=== PATIENT | male | born 1985 | race Caucasian/White ===

== ENCOUNTER 2019-01-12 11:17 | Emergency (ER) | payer OTHER ==
[2019-01-12 12:43] LABS: Absolute Lymphocytes (CBC) 1.7 K/uL (0.7-4.9); Basophils % 0.2 % (0-1.3); Eosinophils % 0.3 % (0-4.4); Lymphocytes % 16.5 % (15.3-44.8); MPV 7.6 fL (7.6-11.3); Monocytes % 9.2 % (3.3-12.3); RBC Red Blood Cell Count 5.45 M/uL (4.33-5.43)
[2019-01-12 12:50] LABS: Protime INR 1.08
[2019-01-12 12:57] LABS: ALT/SGPT 25 U/L (12-78); AST/SGOT 18 U/L (15-37); Albumin 4.6 g/dL (3.4-5.0); Alkaline Phosphatase 92 U/L (45-117); BUN Blood Urea Nitrogen 14 mg/dL (7-18); Bicarbonate 22 mmol/L (21-32); Bilirubin Direct 0.3 mg/dL (0-0.2); Glucose Level 95 mg/dL (74-106); Potassium 3.3 mmol/L (3.5-5.1); Protein, Total 7.7 g/dL (6.4-8.2); Sodium Level 141 mmol/L (136-145)
--- NOTE | 2019-01-12 15:05 | EDPHYS ---
Physician Documentation [facility] Name: Gerardo Barragan Age: 33 yrs Sex: Male : 1985 Arrival Date: 01/12/2019 Time: 11:22 Bed 16 Private MD: ED Physician Lisandro Regan HPI: 01/12 12:28 This 33 yrs old Male presents to ER via Ambulatory with complaints of off pm1 medication. 12:28 The patient presents to the emergency department with Hallucinations. Onset: The pm1 symptoms/episode began/occurred 3 day(s) ago. Past psychiatric history: Prior diagnosis: bipolar disorder, Psychiatric medications include: Cogentin, risperodol, vistaril, Primary psychiatric physician: Dr. Omar Leone. Associated signs and symptoms: Pertinent positives; hallucinations, Pertinent negatives: homicidal ideation, suicide ideation. Severity of symptoms: in the emergency department the symptoms are worse. The patient has experienced similar episodes in the past, multiple times. Patient with insurance coverage issues for Risperdal injection. Currently being seen by Omar Leone who are working with his family to get coverage for Risperdal injections that work for him. Patient has not been compliant with his medications by mouth for the past 3 days. Historical: - Allergies: 12:02 Haldol; iw - Home Meds: 12:02 Cogentin Oral 1 mg twice a day [Active]; Risperdal 2 mg Oral tab 1 tab 2 times per day iw [Active]; Vistaril 50 mg Oral cap 4 times per day [Active]; - PMHx: 12:02 Bipolar disorder; Anxiety; tremors; insomnia; iw - PSHx: 12:02 Tonsillectomy; right hand; iw - Immunization history:: Adult Immunizations not up to date. - Social history:: Smoking status: Patient uses tobacco products, smokes one pack cigarettes per day. - Ebola Screening: : Patient negative for fever greater than or equal to 101.5 degrees Fahrenheit, and additional compatible Ebola Virus Disease symptoms Patient denies exposure to infectious person Patient denies travel to an Ebola-affected area in the 21 days before illness onset No symptoms or risks identified at this time. ROS: 12:28 Constitutional: Negative for fever, chills, and weight loss, Eyes: Negative for injury, pm1 pain, redness, and discharge, ENT: Negative for injury, pain, and discharge, Neck: Negative for injury, pain, and swelling, Cardiovascular: Negative for chest pain, palpitations, and edema, Respiratory: Negative for shortness of breath, cough, wheezing, and pleuritic chest pain, Abdomen/GI: Negative for abdominal pain, nausea, vomiting, diarrhea, and constipation, Back: Negative for injury and pain, : Negative for injury, bleeding, discharge, and swelling, MS/Extremity: Negative for injury and deformity, Skin: Negative for injury, rash, and discoloration, Neuro: Negative for headache, weakness, numbness, tingling, and seizure. 12:28 Psych: Positive for auditory hallucinations, visual hallucinations, insomnia, Negative for homicidal ideation, suicide gesture, suicidal ideation. Exam: 12:28 Constitutional: This is a well developed, well nourished patient who is awake, alert, pm1 and in no acute distress. Head/Face: Normocephalic, atraumatic. Eyes: Pupils equal round and reactive to light, extra-ocular motions intact. Lids and lashes normal. Conjunctiva and sclera are non-icteric and not injected. Cornea within normal limits. Periorbital areas with no swelling, redness, or edema. ENT: Nares patent. No nasal discharge, no septal abnormalities noted. Tympanic membranes are normal and external auditory canals are clear. Oropharynx with no redness, swelling, or masses, exudates, or evidence of obstruction, uvula midline. Mucous membranes moist. Neck: Trachea midline, no thyromegaly or masses palpated, and no cervical lymphadenopathy. Supple, full range of motion without nuchal rigidity, or vertebral point tenderness. No Meningismus. Chest/axilla: Normal chest wall appearance and motion. Nontender with no deformity. No lesions are appreciated. Cardiovascular: Regular rate and rhythm with a normal S1 and S2. No gallops, murmurs, or rubs. Normal PMI, no JVD. No pulse deficits. Respiratory: Lungs have equal breath sounds bilaterally, clear to auscultation and percussion. No rales, rhonchi or wheezes noted. No increased work of breathing, no retractions or nasal flaring. Abdomen/GI: Soft, non-tender, with normal bowel sounds. No distension or tympany. No guarding or rebound. No evidence of tenderness throughout. Back: No spinal tenderness. No costovertebral tenderness. Full range of motion. Skin: Warm, dry with normal turgor. Normal color with no rashes, no lesions, and no evidence of cellulitis. MS/ Extremity: Pulses equal, no cyanosis. Neurovascular intact. Full, normal range of motion. 12:28 Neuro: Orientation: is normal, Motor: is normal, moves all fours, Sensation: is normal, no obvious gross deficits. 12:28 Psych: Behavior/mood is cooperative, Affect is calm, Oriented to person, place, time, Patient has no thoughts/intents to harm self or others. Vital Signs: 12:02 BP 146 / 91; Pulse 90; Resp 16; Temp 98.2; Pulse Ox 100% on R/A; Weight 72.57 kg; iw Height 6 ft. 2 in. (187.96 cm); Pain 0/10; 12:44 BP 133 / 101; Pulse 87; Resp 16; Pulse Ox 99% on R/A; Pain 0/10; ls4 13:51 BP 144 / 92; Pulse 72; Resp 14; Pulse Ox 99% on R/A; Pain 0/10; ls4 14:41 BP 126 / 87; Pulse 74; Resp 14; Pulse Ox 99% on R/A; ls4 12:02 Body Mass Index 20.54 (72.57 kg, 187.96 cm) iw MDM: 11:38 Patient medically screened. pm1 13:44 Data reviewed: vital signs. Data interpreted: Pulse oximetry: on room air is 99 %. pm1 Interpretation: normal. 13:44 ED course: [facility] contacted and they will call us back once they hear from [place] [id number] clinic. 14:26 ED course: Pending urine sample. pm1 15:01 ED course: Patient does not want to provide a urine sample. pm1 01/12 11:45 Order name: Acetaminophen; Complete Time: 13:42 pm1 01/12 11:45 Order name: Basic Metabolic Panel; Complete Time: 13:42 pm1 01/12 11:45 Order name: CBC with Diff; Complete Time: 13:42 pm1 01/12 11:45 Order name: ETOH Level; Complete Time: 13:42 pm1 01/12 11:45 Order name: Hepatic Function; Complete Time: 13:42 pm1 01/12 11:45 Order name: PT-INR pm1 01/12 11:45 Order name: Ptt, Activated pm1 01/12 11:45 Order name: Salicylate; Complete Time: 13:42 pm1 01/12 11:45 Order name: EKG; Complete Time: 12:18 pm1 01/12 11:45 Order name: EKG - Nurse/Tech; Complete Time: 12:17 pm1 01/12 11:45 Order name: IV Saline Lock; Complete Time: 12:02 pm1 01/12 11:45 Order name: Labs collected and sent; Complete Time: 12:02 pm1 EC:08 Rate is 81 beats/min. Rhythm is regular. No Q waves. T waves are Normal. No ST changes pm1 noted. Clinical impression: Normal ECG. Administered Medications: No medications were administered Disposition: 01/12/19 15:02 Discharged to Home. Impression: Patient's other noncompliance with medication regimen, Hallucinations, unspecified. - Condition is Stable. - Medication Reconciliation Form, Thank You Letter, Antibiotic Education, Prescription Opioid Use form. - Follow up: Emergency Department; When: As needed; Reason: Worsening of condition. Follow up: Private Physician; When: 2 - 3 days; Reason: Recheck today's complaints, Continuance of care, Re-evaluation by your physician. - Problem is new. - Symptoms have improved. Addendum: 01/17/2019 16:30 Co-signature as Attending Physician, Lisandro Regan MD I agree with the assessment and c esparza plan of care. Signatures: Dispatcher [employer] EDOH Lisandro Regan MD MD cha Williams, Irene, RN RN Douglas Pickard NP [employer] OFFICE SUPERVISOR pm1 Olivia Garcia, RN RN ls4 Corrections: (The following items were deleted from the chart) 01/12 15:06 15:02 01/12/2019 15:02 Discharged to Home. Impression: Patient's other noncompliance pm1 with medication regimen; Hallucinations, unspecified. Condition is Stable. Forms are Medication Reconciliation Form, Thank You Letter, Antibiotic Education, Prescription Opioid Use. Follow up: Emergency Department; When: As needed; Reason: Worsening of condition. Follow up: Private Physician; When: 2 - 3 days; Reason: Recheck today's complaints, Continuance of care, Re-evaluation by your physician. Problem is new. Symptoms have improved. pm1 15:09 15:06 01/12/2019 15:02 Discharged to Home. Impression: Patient's other noncompliance pm1 with medication regimen. Condition is Stable. Forms are Medication Reconciliation Form, Thank You Letter, Antibiotic Education, Prescription Opioid Use. Follow up: Emergency Department; When: As needed; Reason: Worsening of condition. Follow up: Private Physician; When: 2 - 3 days; Reason: Recheck today's complaints, Continuance of care, Re-evaluation by your physician. Problem is new. Symptoms have improved. pm1 17:16 11:45 Urine Dipstick-Ancillary ordered. pm1 ls4 17:21 15:09 01/12/2019 15:02 Discharged to Home. Impression: Patient's other noncompliance ls4 with medication regimen; Hallucinations, unspecified. Condition is Stable. Forms are Medication Reconciliation Form, Thank You Letter, Antibiotic Education, Prescription Opioid Use. Follow up: Emergency Department; When: As needed; Reason: Worsening of condition. Follow up: Private Physician; When: 2 - 3 days; Reason: Recheck today's complaints, Continuance of care, Re-evaluation by your physician. Problem is new. Symptoms have improved. pm1
--- NOTE | 2019-01-12 15:05 | ER ---
Nurse's Notes [facility] Name: Gerardo Barragan Age: 33 yrs Sex: Male : 1985 Arrival Date: 01/12/2019 Time: 11:22 Bed 16 Private MD: Diagnosis: Patient's other noncompliance with medication regimen;Hallucinations, unspecified Presentation: 01/12 11:57 Presenting complaint: Patient states: has not been taking psych meds for at least 3 to iw 7 days, normally takes Risperdal, Vistaril, Cogentin, hx of bipolar, anxiety, insomnia, is having auditory and visual hallucinations, denies suicidal or homicidal ideation. Transition of care: patient was not received from another setting of care. Onset of symptoms was January 12, 2019. Risk Assessment: Do you want to hurt yourself or someone else? Patient reports no desire to harm self or others. Initial Sepsis Screen: Does the patient meet any 2 criteria? No. Patient's initial sepsis screen is negative. Does the patient have a suspected source of infection? No. Patient's initial sepsis screen is negative. Care prior to arrival: None. 11:57 Method Of Arrival: Ambulatory iw 11:57 Acuity: SANTANA 3 iw Triage Assessment: 12:20 General: Appears in no apparent distress. Behavior is calm, cooperative. Pain: Denies ls4 pain. Historical: - Allergies: 12:02 Haldol; iw - Home Meds: 12:02 Cogentin Oral 1 mg twice a day [Active]; Risperdal 2 mg Oral tab 1 tab 2 times per day iw [Active]; Vistaril 50 mg Oral cap 4 times per day [Active]; - PMHx: 12:02 Bipolar disorder; Anxiety; tremors; insomnia; iw - PSHx: 12:02 Tonsillectomy; right hand; iw - Immunization history:: Adult Immunizations not up to date. - Social history:: Smoking status: Patient uses tobacco products, smokes one pack cigarettes per day. - Ebola Screening: : Patient negative for fever greater than or equal to 101.5 degrees Fahrenheit, and additional compatible Ebola Virus Disease symptoms Patient denies exposure to infectious person Patient denies travel to an Ebola-affected area in the 21 days before illness onset No symptoms or risks identified at this time. Screenin:19 Abuse screen: Denies threats or abuse. Denies injuries from another. Nutritional ls4 screening: No deficits noted. Tuberculosis screening: No symptoms or risk factors identified. Fall Risk None identified. Assessment: 11:45 Reassessment: pt has very rapid speech. pt thoughts change rapidly. General: Appears ls4 uncomfortable, slender, unkempt, Behavior is flat. Neuro: Level of Consciousness is awake, alert, obeys commands, Oriented to person, place, time, . Speech. Cardiovascular: No deficits noted. Respiratory: No deficits noted. 12:45 Reassessment: No changes from previously documented assessment. Patient and/or family ls4 updated on plan of care and expected duration. Pain level reassessed. Patient is alert, oriented x 3, equal unlabored respirations, skin warm/dry/pink. Pt family in room. 13:44 Reassessment: No changes from previously documented assessment. Patient and/or family ls4 updated on plan of care and expected duration. Pain level reassessed. Patient is alert, oriented x 3, equal unlabored respirations, skin warm/dry/pink. pt unable to give urine. pt given water. awaiting specimen. 14:44 Reassessment: No changes from previously documented assessment. Patient and/or family ls4 updated on plan of care and expected duration. Pain level reassessed. Patient is alert, oriented x 3, equal unlabored respirations, skin warm/dry/pink. 15:15 Reassessment: No changes from previously documented assessment. Patient and/or family ls4 updated on plan of care and expected duration. Pain level reassessed. Patient is alert, oriented x 3, equal unlabored respirations, skin warm/dry/pink. spoke to pt father on pats phone. father states he will pick patient up at front door. I asked that he come in for teaching. pt father stated he would. 15:40 Reassessment: Pt left the ED. father did not come in for discharge. ls4 Vital Signs: 12:02 BP 146 / 91; Pulse 90; Resp 16; Temp 98.2; Pulse Ox 100% on R/A; Weight 72.57 kg; iw Height 6 ft. 2 in. (187.96 cm); Pain 0/10; 12:44 BP 133 / 101; Pulse 87; Resp 16; Pulse Ox 99% on R/A; Pain 0/10; ls4 13:51 BP 144 / 92; Pulse 72; Resp 14; Pulse Ox 99% on R/A; Pain 0/10; ls4 14:41 BP 126 / 87; Pulse 74; Resp 14; Pulse Ox 99% on R/A; ls4 12:02 Body Mass Index 20.54 (72.57 kg, 187.96 cm) ED Course: 11:22 Patient arrived in ED. mr 11:37 Olivia Garcia RN is Primary Nurse. ls4 11:38 Douglas Hughes NP is PHCP. pm1 11:38 Lisandro Regan MD is Attending Physician. pm1 12:01 Triage completed. iw 12:02 Arm band placed on. iw 12:19 Patient has correct armband on for positive identification. Bed in low position. Call ls4 light in reach. Side rails up X 1. Adult w/ patient. Pulse ox on. NIBP on. Verbal reassurance given. 12:44 No provider procedures requiring assistance completed. ls4 17:15 IV discontinued, intact, bleeding controlled, No redness/swelling at site. Pressure ls4 dressing applied. Administered Medications: No medications were administered Outcome: 15:02 Discharge ordered by MD. pm1 17:14 Discharged to home ambulatory, with family. ls4 17:14 Condition: good 17:14 Discharge instructions given to patient, family, Instructed on discharge instructions, follow up and referral plans. medication usage, safety practices, Demonstrated understanding of instructions, follow-up care, medications. 17:21 Patient left the ED. ls4 Signatures: Minerva Garnett Laila Porter RN RN Douglas Hughes NP COLLAR BAND CREASER pm1 Olivia Garcia RN RN ls4
--- NOTE | 2019-01-12 16:42 | EKG ---
Test Date: 2019-01-12 Test Time: 12:07:29 Jai Alai Player: MARIAN MEASUREMENT RESULTS: Intervals: Rate: 81 AK: 128 QRSD: 88 QT: 378 QTc: 439 [place]: P: 85 AK: 128 QRS: 76 T: 79 INTERPRETIVE STATEMENTS: Normal sinus rhythm Normal ECG Compared to ECG 04/21/2010 16:07:26 No significant changes Electronically Signed On 01-12-19 16:41:40 CDT by Nilton Ngo
== END 2019-01-12 17:21 | disposition home or self-care (01) ==
LOC: ER 11:17
DX: Z91.14 Patient's other noncompliance with medication regimen (principal); F17.210 Nicotine dependence, cigarettes, uncomplicated; F31.9 Bipolar disorder, unspecified; F41.9 Anxiety disorder, unspecified; Z88.8 Allergy status to other drugs, medicaments and biological substances
CPT/HCPCS: 36415; 80048; 80076; 80320; 80329; 85025; 85610; 85730; 93005; 99283

== ENCOUNTER 2019-02-21 15:30 | Emergency (ER) | payer OTHER ==
--- NOTE | 2019-02-21 16:41 | ER ---
Nurse's Notes [facility] Name: Gerardo Barragan Age: 33 yrs Sex: Male : 1985 Arrival Date: 02/21/2019 Time: 15:31 Bed Waiting Private MD: Diagnosis: Presentation: 02/21 15:39 Presenting complaint: Presenting complaint: EMS states: "he came into our EMS station aa5 with a black case duck taped to his arm saying that it was for the president so we called the police and they cleared the case and said he only had a watch and an ipod". Pt states "I think my back is broken", pt noted to be wearing back brace. Pt being uncooperative in triage, pt states "I only talk to men and I think I have given you enough information already". Pt is A\\T\\O x 4 in triage, pt refusing to answer some questions in triage, pt states "I'll speak to the doctor". Pt states "I've been outside long enough and my dad is trying to kick me out of my own house". 15:39 Acuity: SANTANA 3 aa5 15:39 Transition of care: patient was not received from another setting of care. Onset of aa5 symptoms is unknown. Initial Sepsis Screen: Does the patient meet any 2 criteria? No. Patient's initial sepsis screen is negative. Does the patient have a suspected source of infection? No. Patient's initial sepsis screen is negative. Care prior to arrival: None. 15:39 Method Of Arrival: EMS: [facility] aa5 Historical: - Allergies: 15:39 Haldol; aa5 15:39 Benadryl; aa5 - PMHx: 15:39 Anxiety; Bipolar disorder; insomnia; tremors; aa5 - PSHx: 15:39 Tonsillectomy; right hand; aa5 - Ebola Screening: : No symptoms or risks identified at this time. Vital Signs: 15:40 BP 111 / 85; Pulse 94; Resp 18 S; Temp 98.1(O); Pulse Ox 98% on R/A; aa5 ED Course: 15:31 Patient arrived in ED. as 15:39 Arm band placed on. aa5 15:53 Triage completed. aa5 16:40 Pedro Stein MD is Attending Physician. aa5 Administered Medications: No medications were administered Outcome: 16:40 Patient left the ED. aa5 Signatures: Chaya Leiva Audri, RN RN aa5 Corrections: (The following items were deleted from the chart) 15:45 15:39 Presenting complaint: aa5 aa5 15:53 15:39 Presenting complaint: aa5 aa5 15:55 15:39 Presenting complaint: EMS states: "he came into our EMS station with a black case aa5 duck taped to his arm saying that it was for the president so we called the police and they cleared the case and said he only had a watch and an ipod". Pt states "I think my back is broken", pt noted to be wearing back brace. Pt being uncooperative in triage, pt states "I only talk to men and I think I have given you enough information already". Pt is A\\T\\O x 4 in triage, pt refusing to answer some questions in triage, pt states "I'll speak to the doctor". Presenting complaint: EMS states: "he came into our EMS station with a black case duck taped to his arm saying that it was for the president so we called the police and they cleared the case and said he only had a watch and an ipod". Pt states "I think my back is broken", pt noted to be wearing back brace. Pt being uncooperative in triage, pt states "I only talk to men and I think I have given you enough information already". Pt is A\\T\\O x 4 in triage, pt refusing to answer some questions in triage, pt states "I'll speak to the doctor". aa5
== END 2019-02-21 16:40 | disposition left against medical advice (07) ==
LOC: ER 15:30
DX: Z53.21 Procedure and treatment not carried out due to patient leaving prior to being seen by health care provider (principal)

== ENCOUNTER 2019-04-30 20:05 | Emergency (ER) | payer SELFPAY ==
--- NOTE | 2019-04-30 22:42 | EDPHYS ---
Physician Documentation [facility] Name: Gerardo Barragan Age: 34 yrs Sex: Male : 1985 Arrival Date: 04/30/2019 Time: 20:09 Bed 13 Private MD: Adin Steele R ED Physician Lisandro Regan HPI: 04/30 21:45 This 34 yrs old Male presents to ER via Ambulatory with complaints of Flu cp Symptoms. 21:45 The patient or guardian reports cough, that is intermittent, with productive sputum, cp that is purulent. Onset: The symptoms/episode began/occurred 3 week(s) ago, after receiving flu vaccination. Associated signs and symptoms: Pertinent negatives: chest pain, diarrhea, fever, vomiting. 21:45 Severity of symptoms: in the emergency department the symptoms are unchanged. cp Historical: - Allergies: 20:39 Haldol; ak1 20:39 Benadryl; ak1 - Home Meds: 20:39 Cogentin Oral 1 mg twice a day [Active]; Vistaril 50 mg Oral cap 4 times per day ak1 [Active]; Risperdal 2 mg Oral tab 1 tab 2 times per day [Active]; - PMHx: 20:39 Anxiety; Bipolar disorder; insomnia; tremors; ak1 - PSHx: 20:39 Tonsillectomy; right hand; ak1 - Immunization history:: Adult Immunizations Flu vaccine is up to date. - Social history:: Smoking status: Patient uses tobacco products, smokes one pack cigarettes per day. - Ebola Screening: : No symptoms or risks identified at this time. ROS: 21:50 Constitutional: Negative for body aches, chills, fever, poor PO intake. cp 21:50 Eyes: Negative for injury, pain, redness, and discharge. cp 21:50 ENT: Positive for sore throat, Negative for drainage from ear(s), ear pain, difficulty swallowing, difficulty handling secretions. 21:50 Cardiovascular: Negative for chest pain, palpitations. 21:50 Respiratory: Positive for cough, Negative for wheezing. 21:50 Abdomen/GI: Negative for abdominal pain, nausea, vomiting, and diarrhea. 21:50 Skin: Negative for rash. 21:50 Neuro: Negative for headache. 21:50 All other systems are negative. Exam: 22:00 Constitutional: The patient appears in no acute distress, alert, awake, cp non-diaphoretic, non-toxic, well developed, well nourished. 22:00 Head/Face: Normocephalic, atraumatic. cp 22:00 Eyes: Periorbital structures: appear normal, Conjunctiva: normal, no exudate, no injection, Sclera: no appreciated abnormality, Lids and lashes: appear normal, bilaterally. 22:00 ENT: External ear(s): are unremarkable, Ear canal(s): are normal, clear, TM's: bulging, is not appreciated, bilaterally, dullness, bilaterally, erythema, is not appreciated, bilaterally, Nose: is normal, Mouth: Lips: moist, Oral mucosa: moist, Posterior pharynx: Airway: no evidence of obstruction, patent, Tonsils: no enlargement, no exudate, swelling, is not appreciated, erythema, that is mild, exudate, is not appreciated. 22:00 Neck: ROM/movement: is normal, is supple, without pain, no range of motions limitations, no meningismus, no nuchal rigidity, Lymph nodes: no appreciated lymphadenopathy. 22:00 Chest/axilla: Inspection: normal, Palpation: is normal, no crepitus, no tenderness. 22:00 Cardiovascular: Rate: normal, Rhythm: regular, Edema: is not appreciated, JVD: is not appreciated. 22:00 Respiratory: the patient does not display signs of respiratory distress, Respirations: normal, no use of accessory muscles, no retractions, no splinting, no tachypnea, labored breathing, is not present, Breath sounds: bronchial sounds, that are mild, are heard diffusely, decreased breath sounds, are not appreciated, stridor, is not appreciated, + upper airway congestion. wheezing: is not appreciated. 22:00 Abdomen/GI: Inspection: abdomen appears normal, Palpation: abdomen is soft and non-tender, in all quadrants. 22:00 Skin: no rash present. Vital Signs: 20:39 BP 147 / 97; Pulse 88; Resp 22; Temp 98.6; Pulse Ox 97% on R/A; Weight 65.77 kg (R); ak1 Height 6 ft. 3 in. (190.50 cm) (R); Pain 9/10; 22:15 BP 131 / 82; Pulse 63; Resp 18; Pulse Ox 100% ; Pain 0/10; fu 23:03 BP 114 / 83; Pulse 57; Resp 18; Pulse Ox 100% ; Pain 0/10; fu 20:39 Body Mass Index 18.12 (65.77 kg, 190.50 cm) ak1 MDM: 21:39 Patient medically screened. cp 22:40 Data reviewed: vital signs, nurses notes, lab test result(s), radiologic studies, plain cp films. 22:40 Antibiotic administration: The patient is discharged and will get outpatient cp antibiotics, Zithromax. Test interpretation: by ED physician or midlevel provider: plain radiologic studies, chest xray negative for focal pneumonia. Counseling: I had a detailed discussion with the patient and/or guardian regarding: the historical points, exam findings, and any diagnostic results supporting the discharge/admit diagnosis, lab results, radiology results, to return to the emergency department if symptoms worsen or persist or if there are any questions or concerns that arise at home. ED course: Will treat with oral Zithromax due to length of symptoms for 3 weeks. 04/30 20:40 Order name: Flu ak1 04/30 21:40 Order name: Strep cp 04/30 21:40 Order name: XRAY Chest Pa And Lat (2 Views) cp 04/30 22:14 Order name: Throat Culture EDMS Administered Medications: No medications were administered Disposition: 04/30/19 22:41 Discharged to Home. Impression: Acute bronchitis. - Condition is Stable. - Discharge Instructions: Acute Bronchitis, Adult. - Prescriptions for Tessalon Perles 100 mg Oral Capsule - take 1 capsule by ORAL route every 8 hours As needed; 15 capsule. Zithromax Z- Jacob 250 mg Oral Tablet - take 1 tablet by ORAL route as directed for 5 days Day 1 - take two (2) tablets one time. Day 2, 3, 4 , 5 take one (1) tablet once daily.; 6 tablet. Albuterol Sulfate 90 mcg/actuation - inhale 1-2 puff by INHALATION route every 4-6 hours; 1 Inhaler. - Medication Reconciliation Form, Thank You Letter, Antibiotic Education, Prescription Opioid Use form. - Follow up: Private Physician; When: 2 - 3 days; Reason: Worsening of condition. - Problem is new. - Symptoms are unchanged. Addendum: 05/02/2019 06:36 Co-signature as Attending Physician, Lisandro Regan MD I agree with the assessment and c esparza plan of care. Signatures: Dispatcher [employer] EDLisandro Bar MD MD cha Krenek, Amber RN RN ak1 Lisandro Henning PA PA cp Umadhay, Felix, RN RN fu Corrections: (The following items were deleted from the chart) 04/30 23:12 22:41 04/30/2019 22:41 Discharged to Home. Impression: Acute bronchitis. Condition is fu Stable. Forms are Medication Reconciliation Form, Thank You Letter, Antibiotic Education, Prescription Opioid Use. Follow up: Private Physician; When: 2 - 3 days; Reason: Worsening of condition. Problem is new. Symptoms are unchanged. cp
--- NOTE | 2019-04-30 22:42 | ER ---
Nurse's Notes [facility] Name: Gerardo Barragan Age: 34 yrs Sex: Male : 1985 Arrival Date: 04/30/2019 Time: 20:09 Bed 13 Private MD: Adin Steele R Diagnosis: Acute bronchitis Presentation: 04/30 20:36 Presenting complaint: Patient states: generalized weakness, insomnia X24 hours. pt c/o ak1 SOB X36 hours. Transition of care: patient was not received from another setting of care. Onset of symptoms is unknown. Risk Assessment: Do you want to hurt yourself or someone else? Patient reports no desire to harm self or others. Initial Sepsis Screen: Does the patient meet any 2 criteria? No. Patient's initial sepsis screen is negative. Does the patient have a suspected source of infection? No. Patient's initial sepsis screen is negative. Note pt is not taking his psych medications "I am not rich and can't afford them". Care prior to arrival: None. 20:36 Method Of Arrival: Ambulatory ak1 20:36 Acuity: SANTANA 3 ak1 Triage Assessment: 20:39 General: Appears in no apparent distress. Behavior is calm, cooperative. ak1 Historical: - Allergies: 20:39 Haldol; ak1 20:39 Benadryl; ak1 - Home Meds: 20:39 Cogentin Oral 1 mg twice a day [Active]; Vistaril 50 mg Oral cap 4 times per day ak1 [Active]; Risperdal 2 mg Oral tab 1 tab 2 times per day [Active]; - PMHx: 20:39 Anxiety; Bipolar disorder; insomnia; tremors; ak1 - PSHx: 20:39 Tonsillectomy; right hand; ak1 - Immunization history:: Adult Immunizations Flu vaccine is up to date. - Social history:: Smoking status: Patient uses tobacco products, smokes one pack cigarettes per day. - Ebola Screening: : No symptoms or risks identified at this time. Screenin:39 Abuse screen: Denies threats or abuse. Denies injuries from another. Nutritional ak1 screening: No deficits noted. Tuberculosis screening: No symptoms or risk factors identified. Fall Risk None identified. Assessment: 21:03 General: Appears in no apparent distress. Behavior is calm, cooperative, appropriate wh for age. Pain: Denies pain. Neuro: Level of Consciousness is awake, alert, obeys commands, Oriented to person, place, time, situation, Appropriate for age. Cardiovascular: Heart tones S1 S2 Capillary refill < 3 seconds. Respiratory: Airway is patent Respiratory effort is even, unlabored, Respiratory pattern is regular, symmetrical, Breath sounds are clear bilaterally. GI: Abdomen is flat, non-distended. : No signs and/or symptoms were reported regarding the genitourinary system. EENT: No signs and/or symptoms were reported regarding the EENT system. Derm: Skin is intact, is healthy with good turgor, Skin is pink, warm \\T\\ dry. normal. Musculoskeletal: Circulation, motion, and sensation intact. 22:00 Reassessment: Patient appears in no apparent distress at this time. No changes from fu previously documented assessment. Patient and/or family updated on plan of care and expected duration. Pain level reassessed. Patient is alert, oriented x 3, equal unlabored respirations, skin warm/dry/pink. Patient denies pain at this time. 23:00 Reassessment: Patient appears in no apparent distress at this time. No changes from fu previously documented assessment. Patient and/or family updated on plan of care and expected duration. Pain level reassessed. Patient is alert, oriented x 3, equal unlabored respirations, skin warm/dry/pink. Patient denies pain at this time. Vital Signs: 20:39 BP 147 / 97; Pulse 88; Resp 22; Temp 98.6; Pulse Ox 97% on R/A; Weight 65.77 kg (R); ak1 Height 6 ft. 3 in. (190.50 cm) (R); Pain 9/10; 22:15 BP 131 / 82; Pulse 63; Resp 18; Pulse Ox 100% ; Pain 0/10; fu 23:03 BP 114 / 83; Pulse 57; Resp 18; Pulse Ox 100% ; Pain 0/10; fu 20:39 Body Mass Index 18.12 (65.77 kg, 190.50 cm) ak1 ED Course: 20:09 Patient arrived in ED. es 20:09 Adin Steele MD is Private Physician. es 20:38 Triage completed. ak1 20:39 Arm band placed on Patient placed in waiting room, Patient notified of wait time. ak1 20:39 Patient has correct armband on for positive identification. ak1 21:03 Ed Kulkarni is Primary Nurse. 21:36 Lisandro Henning PA is PHCP. cp 21:36 Lisandro Regan MD is Attending Physician. cp 22:09 XRAY Chest Pa And Lat (2 Views) In Process Unspecified. EDMS 23:00 No provider procedures requiring assistance completed. Patient did not have IV access fu during this emergency room visit. Administered Medications: No medications were administered Outcome: 22:41 Discharge ordered by . cp 23:11 Discharged to home ambulatory. fu 23:11 Condition: stable 23:11 Discharge instructions given to patient, Instructed on discharge instructions, Demonstrated understanding of instructions, Prescriptions given X 3. 23:12 Patient left the ED. fu Signatures: Dispatcher [employer] EDZelda Zapata Amber, RN RN ak1 Lisandro Henning PA PA cp Ed Kulkarni Eliot Escalante RN RN fu
[2019-04-30 23:16] VITALS: TEMP 98.6
[2019-04-30 23:17] VITALS: BP 131/82; O2SAT 100
--- NOTE | 2019-05-01 07:44 | RAD REPORT ---
EXAM DESCRIPTION: RAD - Chest Pa And Lat (2 Views) - 04/30/2019 10:10 pm CLINICAL HISTORY: COUGH COMPARISON: None. TECHNIQUE: PA and lateral views of the chest were obtained. FINDINGS: The lungs are clear. Interstitial pattern within normal limits. No mediastinal or hilar l ymphadenopathy suspected. Heart size is normal and central vasculature is within normal limits. No p leural effusion or pneumothorax seen. No acute bony finding noted. No aortic abnormality. IMPRESSION: No acute cardiopulmonary process.
== END 2019-04-30 23:12 | disposition home or self-care (01) ==
LOC: ER 20:05
DX: J20.9 Acute bronchitis, unspecified (principal); F31.9 Bipolar disorder, unspecified; F17.210 Nicotine dependence, cigarettes, uncomplicated; Z88.5 Allergy status to narcotic agent; Z88.8 Allergy status to other drugs, medicaments and biological substances
CPT/HCPCS: 71046; 87070; 87081; 87804; 99283

== ENCOUNTER 2020-01-18 09:46 | Emergency (ER) | payer OTHER ==
--- OUTSIDE RECORDS SUMMARY | 2020-01-18 09:51 | XMS REPORT | Continuity of Care Document ---
:[address] [facility] t Address [address] [place] [address] Care Team Providers Name Role Phone Donny PATEL Attending Clinician Rm, Surg Spec Procedure Attending Clinician Unavailable Problems Condition Condition Condition Status Onset Resolution Last Treating Co mments Source Name Details Category Date Date Treatment Clinician Date Schizophre Schizophre Problem Active [facility] ill[facility] adalgisa adalgisa 3- Family 00:00: Practic 00 e Allergies, Adverse Reactions, Alerts This patient has no known allergies or adverse reactions. Social History Smoking Status Start Date Stop Date Source Light Tobacco Smoker [facility] Practice Medications Ordered Filled Start Stop Current Ordering Indication Dosage Frequency Signature Comments Components Source Medication Medication Date Date Medication? Clinician (SIG) Name Name benztropine benztropine No 1 BID benztropin [facility] 1 mg tablet 1 mg tablet e 1 mg Family Take 1 Take 1 tablet Practic tablet tablet Take 1 e twice a day twice a day tablet by oral by oral twice a route with route with day by meals. meals. oral route with meals. hydroxyzine hydroxyzine No hydroxyzin [facility] HCl 1 tab a HCl 1 tab a e HCl 1 Family day three day three tab a day Practic times a day times a day three e times a day risperidone risperidone No 1 BID risperidon [facility] 2 mg 2 mg e 2 mg Family disintegrat disintegrat disintegra Practic ing tablet ing tablet ting e Place 1 Place [address] 1 twice a day twice a day tablet by by twice a translingua translingua day by l route l route translingu with meals. with meals. al route with meals. Immunizations Ordered Immunization Filled Immunization Date Status Commen ts Source Name Name influenza, influenza, 2019-04-10 Completed [facility] injectable, injectable, 00:00:00 Practice quadrivalent quadrivalent Vital Signs Vital Name Observation Time Observation Value Comments Source BP Diastolic 2019-09-11 00:00:00 80 mm[Hg] [place] Height 2019-09-11 00:00:00 74 [in_i] [place] BMI (Body Mass 2019-09-11 00:00:00 22.5 kg/m2 [facility] Family Index) Practice BP Systolic 2019-09-11 00:00:00 115 mm[Hg] [place] [place] Body Weight 2019-09-11 00:00:00 175 [lb_av] [place] [place] Procedures This patient has no known procedures. Plan of Care Planned Activity Planned Date Details Comments Source Instructions [place] [place] Encounters Start End Encounter Admission Attending Care Care Encounter Source Date/Time Date/Time Type Type Clinicians Facility Department ID 2019-09-11 2019-09-11 Katerin [facility] [place] - [id number] [facility] 00:00:00 00:00:00 [facility]any[facility] flor o, [employer]: Medical - Practi c [email or web address] [facility], [address] [address], [place] [address] , Ph. 2019-08-14 2019-09-06 Office Deena Hines [facility] [id number] 15:06:18 15:55:07 Visit Bryan, Shorty Surg Spec Procedure [place] 3 [id number] [place] [id number] Professio [phone] Results This patient has no known results.
--- NOTE | 2020-01-18 10:39 | RAD REPORT ---
EXAM DESCRIPTION: CT - Spine Lumbar Wo Con - 01/18/2020 10:28 am CLINICAL HISTORY: Radiculopathy. LOWER BACK PAIN COMPARISON: No comparisons TECHNIQUE: Axial noncontrast CT imaging of the lumbar spine was performed with coronal and sagittal re-formatted images. All CT scans are performed using dose optimization technique as appropriate and may include automated exposure control or mA/KV adjustment according to patient size. FINDINGS: No acute lumbar spine fracture seen. No aggressive marrow pattern or malalignment. Paraspinal tissues are normal in thickness. No paraspinal abscess or hematoma seen. Mild spondylosis is present lower lumbar levels with posterior disc bulges. No high-grade canal steno sis suspected. IMPRESSION: No acute lumbar spine abnormality. Mild lower lumbar spondylosis.
[2020-01-18] MEDS ORDERED: KETOROLAC 30 MG/ML INJ ONE (10:53)
[2020-01-18] MEDS ORDERED: HYDROCODONE/APAP 7.5/325 MG TAB ONE (10:53)
--- NOTE | 2020-01-18 11:18 | EDPHYS ---
Physician Documentation [facility] Name: Gerardo Barragan Age: 34 yrs Sex: Male : 1985 Arrival Date: 01/18/2020 Time: 09:48 Bed 20 Private MD: Adin Steele R ED Physician Pedro Stein HPI: 01/17 11:12 This 34 yrs old Male presents to ER via Ambulatory with complaints of Back kb Injury, Back Pain. 11:12 The patient presents with pain that is acute, with no known mechanism of injury. The kb symptoms are located in the low back. Onset: The symptoms/episode began/occurred this morning. The pain does not radiate. Associated signs and symptoms: Pertinent positives: tingling. The problem was sustained without known cause. Modifying factors: The patient symptoms are alleviated by nothing, the patient symptoms are aggravated by any movement. Severity of symptoms: At their worst the symptoms were moderate, in the emergency department the symptoms are unchanged. The patient has not experienced similar symptoms in the past. The patient has not recently seen a physician. Pt reports he woke up with pain to lower back that radiated down legs. Denies incontinence, urinary symptoms, difficulty walking, numbness. States he does feel a tingling to bilateral arms and legs. Denies injury or trauma. Historical: - Allergies: 10:13 Benadryl; ss 10:13 Haldol; ss - PMHx: 10:13 Anxiety; Bipolar disorder; insomnia; tremors; ss - PSHx: 10:13 Tonsillectomy; right hand; ss - Immunization history:: Adult Immunizations up to date. - Social history:: Smoking status: Patient denies any tobacco usage or history of. ROS: 11:11 Constitutional: Negative for fever, chills, and weight loss, Cardiovascular: Negative kb for chest pain, palpitations, and edema, Respiratory: Negative for shortness of breath, cough, wheezing, and pleuritic chest pain, Abdomen/GI: Negative for abdominal pain, nausea, vomiting, diarrhea, and constipation, : Negative for injury, bleeding, discharge, and swelling, MS/Extremity: Negative for injury and deformity, Skin: Negative for injury, rash, and discoloration, Neuro: Negative for headache, weakness, numbness, tingling, and seizure. 11:11 Back: Positive for pain at rest, pain with movement, radiated pain, of the lumbar area. Exam: 11:12 Constitutional: This is a well developed, well nourished patient who is awake, alert, kb and in no acute distress. Head/Face: Normocephalic, atraumatic. Chest/axilla: Normal chest wall appearance and motion. Nontender with no deformity. No lesions are appreciated. Cardiovascular: Regular rate and rhythm with a normal S1 and S2. No gallops, murmurs, or rubs. Normal PMI, no JVD. No pulse deficits. Respiratory: Lungs have equal breath sounds bilaterally, clear to auscultation and percussion. No rales, rhonchi or wheezes noted. No increased work of breathing, no retractions or nasal flaring. Abdomen/GI: Soft, non-tender, with normal bowel sounds. No distension or tympany. No guarding or rebound. No evidence of tenderness throughout. Back: No spinal tenderness. No costovertebral tenderness. Full range of motion. Skin: Warm, dry with normal turgor. Normal color with no rashes, no lesions, and no evidence of cellulitis. MS/ Extremity: Pulses equal, no cyanosis. Neurovascular intact. Full, normal range of motion. Neuro: Awake and alert, GCS 15, oriented to person, place, time, and situation. Cranial nerves II-XII grossly intact. Motor strength 5/5 in all extremities. Sensory grossly intact. Cerebellar exam normal. Normal gait. Vital Signs: 10:10 BP 131 / 99; Pulse 135; Resp 20; Temp 99.0(TE); Pulse Ox 99% on R/A; Weight 82.55 kg; ss Height 6 ft. 3 in. (190.50 cm); Pain 8/10; 10:18 Pulse 114; ca1 10:10 Body Mass Index 22.75 (82.55 kg, 190.50 cm) ss MDM: 10:00 Patient medically screened. kb 11:12 Data reviewed: vital signs, nurses notes. Data interpreted: Pulse oximetry: on room air kb is 99 %. Interpretation: normal. Counseling: I had a detailed discussion with the patient and/or guardian regarding: the historical points, exam findings, and any diagnostic results supporting the discharge/admit diagnosis, radiology results, the need for outpatient follow up, a family practitioner, to return to the emergency department if symptoms worsen or persist or if there are any questions or concerns that arise at home. 11:15 ED course: No tenderness upon palpation of back. Normal physical exam. . kb 01/17 10:07 Order name: CT Lumbar Spine Wo Silvestre; Complete Time: 10:41 kb Administered Medications: 10:47 Drug: [place] (7.5 mg-325 mg) 1 tabs {Note: rass 0.} Route: PO; ca1 10:48 Drug: TORadol 30 mg Route: IM; Site: right gluteus; ca1 Disposition: 15:35 Co-signature as Attending Physician, Pedro Stein MD I agree with the assessment and kdr plan of care. Disposition: 01/18/20 11:17 Discharged to Home. Impression: Low back pain. - Condition is Stable. - Discharge Instructions: Musculoskeletal Pain, Back Pain, Adult, [id number], Back Exercises, [id number]. - Prescriptions for Prednisone 20 mg Oral Tablet - take 1 tablet by ORAL route once daily for 5 days; 5 tablet. Cyclobenzaprine 10 mg Oral Tablet - take 1 tablet by ORAL route every 8 hours As needed; 21 tablet. - Medication Reconciliation Form, Thank You Letter, Antibiotic Education, Prescription Opioid Use form. - Follow up: Emergency Department; When: As needed; Reason: Worsening of condition. Follow up: Private Physician; When: 2 - 3 days; Reason: Recheck today's complaints, Continuance of care, Re-evaluation by your physician. Signatures: Dispatcher [employer] EDOH Breann Eduardo, MACHINE FEEDER FLOORPERSON-C MACHINE FEEDER FLOORPERSON-Pedro Terrell MD MD [facility] Najma Valverde RN RN ss Maryam Georges RN RN ca1 Corrections: (The following items were deleted from the chart) 11:31 11:17 01/18/2020 11:17 Discharged to Home. Impression: Low back pain. Condition is ss Stable. Forms are Medication Reconciliation Form, Thank You Letter, Antibiotic Education, Prescription Opioid Use. Follow up: Emergency Department; When: As needed; Reason: Worsening of condition. Follow up: Private Physician; When: 2 - 3 days; Reason: Recheck today's complaints, Continuance of care, Re-evaluation by your physician. kb
--- NOTE | 2020-01-18 11:18 | ER ---
Nurse's Notes [facility] Name: Gerardo Barragan Age: 34 yrs Sex: Male : 1985 Arrival Date: 01/18/2020 Time: 09:48 Bed 20 Private MD: Adin Steele R Diagnosis: Low back pain Presentation: 01/17 10:10 Chief complaint: Patient states: severe low back pain and bilateral leg pain with ss tingling to hands lower extremities. Began this morning when patient woke up. No injury. Coronavirus screen: Proceed with normal triage. Patient denies a cough. Patient denies shortness of breath or difficulty breathing. Patient denies measured and/or subjective temperature greater than 100.4F prior to today's visit. Patient denies travel on a cruise ship or to a country the [facility] currently lists as an affected area. Patient denies contact with known and/or suspected case of COVID-19. Ebola Screen: Patient denies exposure to infectious person. Patient denies travel to an Ebola-affected area in the 21 days before illness onset. Initial Sepsis Screen: Does the patient meet any 2 criteria? No. Patient's initial sepsis screen is negative. Does the patient have a suspected source of infection? No. Patient's initial sepsis screen is negative. Risk Assessment: Do you want to hurt yourself or someone else? Patient reports no desire to harm self or others. Onset of symptoms was January 18, 2020. 10:10 Method Of Arrival: Ambulatory ss 10:10 Acuity: SANTANA 2 ss Historical: - Allergies: 10:13 Benadryl; ss 10:13 Haldol; ss - PMHx: 10:13 Anxiety; Bipolar disorder; insomnia; tremors; ss - PSHx: 10:13 Tonsillectomy; right hand; ss - Immunization history:: Adult Immunizations up to date. - Social history:: Smoking status: Patient denies any tobacco usage or history of. Screenin:18 Abuse screen: Denies threats or abuse. Denies injuries from another. Nutritional ca1 screening: No deficits noted. Tuberculosis screening: No symptoms or risk factors identified. Fall Risk None identified. Assessment: 10:18 General: Appears in no apparent distress. comfortable, Behavior is cooperative, ca1 appropriate for age, anxious. Pain: Complains of pain in low back area Pain currently is 8 out of 10 on a pain scale. Neuro: Level of Consciousness is awake, alert, obeys commands, Oriented to person, place, time, situation. Cardiovascular: Heart tones S1 S2 present Capillary refill < 3 seconds Patient's skin is warm and dry. Rhythm is sinus tachycardia. Respiratory: Airway is patent Respiratory effort is even, unlabored, Respiratory pattern is regular, symmetrical, Breath sounds are clear bilaterally. GI: Abdomen is flat, non-distended, Bowel sounds present X 4 quads. Abd is soft and non tender X 4 quads. : No signs and/or symptoms were reported regarding the genitourinary system. EENT: No signs and/or symptoms were reported regarding the EENT system. Derm: Skin is intact, is healthy with good turgor, Skin is pink, warm \T\ dry. Musculoskeletal: Circulation, motion, and sensation intact. Capillary refill < 3 seconds. 10:48 Reassessment: Patient appears in no apparent distress at this time. Patient and/or ca1 family updated on plan of care and expected duration. Pain level reassessed. Patient is alert, oriented x 3, equal unlabored respirations, skin warm/dry/pink. General: Appears Behavior is calm, cooperative, appropriate for age. Vital Signs: 10:10 BP 131 / 99; Pulse 135; Resp 20; Temp 99.0(TE); Pulse Ox 99% on R/A; Weight 82.55 kg; ss Height 6 ft. 3 in. (190.50 cm); Pain 8/10; 10:18 Pulse 114; ca1 10:10 Body Mass Index 22.75 (82.55 kg, 190.50 cm) ED Course: 09:48 Patient arrived in ED. ag5 09:48 Adin Steele MD is Private Physician. ag5 09:53 Breann Eduardo FNP-C [facility]. kb 09:53 Pedro Stein MD is Attending Physician. kb 09:58 Maryam Georges RN is Primary Nurse. ca1 10:12 Triage completed. ss 10:13 Arm band placed on right wrist. ss 10:18 Patient has correct armband on for positive identification. Bed in low position. Call ca1 light in reach. Side rails up X 1. Pulse ox on. NIBP on. 10:27 CT Lumbar Spine Wo Con In Process Unspecified. EDMS 11:31 No provider procedures requiring assistance completed. Patient did not have IV access ss during this emergency room visit. Administered Medications: 10:47 Drug: [place] (7.5 mg-325 mg) 1 tabs {Note: rass 0.} Route: PO; ca1 10:48 Drug: TORadol 30 mg Route: IM; Site: right gluteus; ca1 Outcome: 11:17 Discharge ordered by . raj 11:31 Discharged to home ambulatory. ss 11:31 Condition: good 11:31 Discharge instructions given to patient, Instructed on discharge instructions, follow up and referral plans. medication usage, Demonstrated understanding of instructions, follow-up care, medications, Prescriptions given X 2. 11:31 Patient left the ED. ss Signatures: Dispatcher [employer] EDMS Breann Eduardo, JOVANNY PATRICIO-Najma Javier RN RN ss Maryam Georges RN RN ca1 Gisella Cho ag5 Corrections: (The following items were deleted from the chart) 10:15 10:10 BP 157 / 88; Pulse 80bpm; Resp 16bpm; Pulse Ox 96% RA; Temp 97.8F Temporal; 81.65 ss kg; Height 5 ft. 11 in.; BMI: 25.1; Pain 5/10; ss
[2020-01-18 11:46] VITALS: BP 131/99; TEMP 99; O2SAT 99
== END 2020-01-18 11:31 | disposition home or self-care (01) ==
LOC: ER 09:46
DX: M54.5 Low back pain (principal); Z88.8 Allergy status to other drugs, medicaments and biological substances
CPT/HCPCS: 72131; 96372; 99284

== ENCOUNTER 2021-05-24 01:52 | Emergency (ER) | payer OTHER ==
--- OUTSIDE RECORDS SUMMARY | 2021-05-24 01:55 | XMS REPORT | Continuity of Care Document ---
:1985 Author Organization [facility] t Address [address] [place] [address] Care Team Providers Name Role Phone Yudi_Jonathan_AH Attending Clinician Unavailable Donny PATEL Attending Clinician Rm, Surg Spec Procedure Attending Clinician Unavailable DONNY Attending Clinician Unavailable Enio BROWNLEE Attending Clinician Unavailable Enio BROWNLEE Attending Clinician Unavailable Yudi_Jonathan_AH Admitting Clinician Unavailable SUZY LAKHANI Admitting Clinician Unavailable Payers Payer Name Policy Type Policy Number Effective Date Expiration Date S ource [facility] [id number] 2019 [facility] 00:[facility]:00 (MEDICARE REPLACEMENT/ADVANT AGE - HMO) [facility] [id number] 2019 PLUS CLASSIC/VALUE 00:00:00 Problems Condition Condition Condition Status Onset Resolution Last Treating Co mments Source Name Details Category Date Date Treatment Clinician Date Schizophre Schizophre Problem Active V illage adalgisa adalgisa 3-04 Family 00:00: Practic 00 e Allergies, Adverse Reactions, Alerts Allergy Allergy Status Severity Reaction(s) Onset Inactive Treating Comm ents Source Name Type Date Date Clinician No Known DA Active U [facility] Drug 5-12 Allergie 00:00: s 00 NO KNOWN Drug Active [facility]ERGIE [facility] Social History Smoking Status Start Date Stop Date Source Light Tobacco Smoker [facility] Practice Medications Ordered Filled Start Stop Current Ordering Indication Dosage Frequency Signature Comments Components Source Medication Medication Date Date Medication? Clinician (SIG) Name Name benztropine benztropine No [address] [facility] 1 mg tablet 1 mg tablet e 1 mg Family Take 1 Take 1 tablet Practic tablet tablet Take 1 e twice a day twice a day tablet by oral by oral twice a route with route with day by meals. meals. oral route with meals. hydroxyzine hydroxyzine No hydroxyzin [facility] HCl 1 tab a HCl 1 tab a e HCl 1 Family day three day three tab a day Practic times a day times a day three e times a day risperidone risperidone No [address] [facility] 2 mg 2 mg e 2 mg [facility] disintegrat disintegrat disintegra Practic ing tablet ing tablet ting e Place 1 Place [address] 1 twice a day twice a day tablet by by twice a translingua translingua day by l route l route translingu with meals. with meals. al route with meals. Immunizations Ordered Immunization Filled Immunization Date Status Commen ts Source Name Name influenza, influenza, 2019-04-10 Completed [facility] injectable, injectable, 00:00:00 Practice quadrivalent quadrivalent Vital Signs Vital Name Observation Time Observation Value Comments Source BP Diastolic 2019-09-11 00:00:00 80 mm[Hg] [facility] Height 2019-09-11 00:00:00 74 [in_i] [facility] BMI (Body Mass 2019-09-11 00:00:00 22.5 kg/m2 [place] Index) Practice BP Systolic 2019-09-11 00:00:00 115 mm[Hg] [facility] Body Weight 2019-09-11 00:00:00 175 [lb_av] [facility] 02 Sat by Pulse 2020-11-19 17:22:44 99 /min Oximetry Body Mass Index 2020-11-19 17:22:44 20.0 Height 2020-11-19 17:22:44 190.5\S\75 Pulse Rate 2020-11-19 17:22:44 78 /min Respiratory Rate 2020-11-19 17:22:44 19 /min Temperature 2020-11-19 17:22:44 36.7\S\98.1 Weight 2020-11-19 17:22:44 04260.779\S\2560 Respiratory 2020-11-19 17:22:43 No respiratory distress /min Respiratory 2020-11-19 17:11:21 No respiratory distress /min 02 Sat by Pulse 2020-11-19 17:11:21 99 /min Oximetry Body Mass Index 2020-11-19 17:11:21 20.0 Height 2020-11-19 17:11:21 190.5\S\75 Pulse Rate 2020-11-19 17:11:21 78 /min Respiratory Rate 2020-11-19 17:11:21 19 /min Temperature 2020-11-19 17:11:21 36.7\S\98.1 Weight 2020-11-19 17:11:21 82939.779\S\2560 Respiratory 2020-11-19 16:06:27 No respiratory distress /min 02 Sat by Pulse 2020-11-19 16:06:27 99 /min Oximetry Body Mass Index 2020-11-19 16:06:27 20.0 Height 2020-11-19 16:06:27 190.5\S\75 Pulse Rate 2020-11-19 16:06:27 78 /min Respiratory Rate 2020-11-19 16:06:27 19 /min Temperature 2020-11-19 16:06:27 36.7\S\98.1 Weight 2020-11-19 16:06:27 69295.779\S\2560 Respiratory 2020-11-19 15:51:02 No respiratory distress /min 02 Sat by Pulse 2020-11-19 15:51:02 99 /min Oximetry Body Mass Index 2020-11-19 15:51:02 20.0 Height 2020-11-19 15:51:02 190.5\S\75 Pulse Rate 2020-11-19 15:51:02 78 /min Respiratory Rate 2020-11-19 15:51:02 19 /min Temperature 2020-11-19 15:51:02 36.7\S\98.1 Weight 2020-11-19 15:51:02 37949.779\S\2560 Respiratory 2020-11-19 15:50:32 No respiratory distress /min 02 Sat by Pulse 2020-11-19 15:50:32 99 /min Oximetry Body Mass Index 2020-11-19 15:50:32 20.0 Height 2020-11-19 15:50:32 190.5\S\75 Pulse Rate 2020-11-19 15:50:32 78 /min Respiratory Rate 2020-11-19 15:50:32 19 /min Temperature 2020-11-19 15:50:32 36.7\S\98.1 Weight 2020-11-19 15:50:32 85745.779\S\2560 Respiratory 2020-11-19 15:50:31 No respiratory distress /min 02 Sat by Pulse 2020-11-19 15:50:31 99 /min Oximetry Body Mass Index 2020-11-19 15:50:31 20.0 Height 2020-11-19 15:50:31 190.5\S\75 Pulse Rate 2020-11-19 15:50:31 78 /min Respiratory Rate 2020-11-19 15:50:31 19 /min Temperature 2020-11-19 15:50:31 36.7\S\98.1 Weight 2020-11-19 15:50:31 26733.779\S\2560 Respiratory 2020-11-19 15:49:59 No respiratory distress /min 02 Sat by Pulse 2020-11-19 15:49:59 99 /min Oximetry Body Mass Index 2020-11-19 15:49:59 20.0 Height 2020-11-19 15:49:59 190.5\S\75 Pulse Rate 2020-11-19 15:49:59 78 /min Respiratory Rate 2020-11-19 15:49:59 19 /min Temperature 2020-11-19 15:49:59 36.7\S\98.1 Weight 2020-11-19 15:49:59 09674.779\S\2560 Respiratory 2020-11-19 15:17:34 No respiratory distress /min 02 Sat by Pulse 2020-11-19 15:17:34 99 /min Oximetry Body Mass Index 2020-11-19 15:17:34 20.0 Height 2020-11-19 15:17:34 190.5\S\75 Pulse Rate 2020-11-19 15:17:34 78 /min Respiratory Rate 2020-11-19 15:17:34 19 /min Temperature 2020-11-19 15:17:34 36.7\S\98.1 Weight 2020-11-19 15:17:34 51283.779\S\2560 02 Sat by Pulse 2020-11-19 14:20:07 99 /min Oximetry Body Mass Index 2020-11-19 14:20:07 20.0 Height 2020-11-19 14:20:07 190.5\S\75 Pulse Rate 2020-11-19 14:20:07 78 /min Respiratory Rate 2020-11-19 14:20:07 19 /min Temperature 2020-11-19 14:20:07 36.7\S\98.1 Weight 2020-11-19 14:20:07 95125.779\S\2560 02 Sat by Pulse 2020-11-19 14:01:33 99 /min Oximetry Body Mass Index 2020-11-19 14:01:33 20.0 Height 2020-11-19 14:01:33 190.5\S\75 Pulse Rate 2020-11-19 14:01:33 78 /min Respiratory Rate 2020-11-19 14:01:33 19 /min Temperature 2020-11-19 14:01:33 36.7\S\98.1 Weight 2020-11-19 14:01:33 50428.779\S\2560 WEIGHT 2020-11-19 13:57:00 72.403031 kg HEIGHT 2020-11-19 13:57:00 190.5 cm Procedures This patient has no known procedures. Plan of Care Planned Activity Planned Date Details Comments Source Instructions [facility] Practice Encounters Start End Encounter Admission Attending Care Care Encounter Source Date/Time Date/Time Type Type Clinicians Facility Department ID 2021-05-23 Outpatient Stephany-Mbayo VFP VFP [id number] [facility] 01:17:54 _A_ [id number] Family Practic e 2021-05-23 Outpatient Stephany-Mbayo VFP VFP [id number] [facility] 01:04:41 _A_ [id number] Family Practic e 2021-05-22 Outpatient Stephany-Mbayo VFP VFP [id number] [facility] 23:46:28 _A_ [id number] Family Practic e 2021-05-22 Outpatient Stephany-Mbayo VFP VFP [id number] [place] 23:27:18 _A_AH [id number] Family Practic e 2021-05-22 Outpatient Stephany-Mbayo VFP VFP [id number] [place] 22:40:48 _A_AH [id number] Family Practic e 2021-05-22 Outpatient Stephany-Mbayo VFP VFP [id number] [place] 22:29:07 _A_AH [id number] Family Practic e 2021-05-22 Outpatient Stephany-Mbayo VFP VFP [id number] [place] 22:16:10 _A_AH 77021 Family Practic e 2021-05-22 Outpatient Stephany-Mbayo VFP VFP [id number] [place] 22:07:07 _A_AH [id number] Family Practic e 2021-05-22 Outpatient Stephany-Mbayo VFP VFP [id number] [place] 20:48:31 _A_AH [id number] Family Practic e 2021-05-22 Outpatient Stephany-Mbayo VFP VFP [id number] [place] 14:47:47 _A_AH [id number] Family Practic e 2021-05-19 2021-05-19 ambulatory [facility] [id number] [facility] 00[facility]00 [facility] 2020-03-10 2020-03-10 Outpatient R [facility] [id number] [facility] 14:40:00 14:40:00 [id number] [facility] 2020-03-10 2020-03-10 Outpatient R [facility] [id number] Univers 14:40:00 14:40:00 [facility] 2019-09-11 2019-09-11 Katerin VFP [place] - [id number] [facility] 00:00:00 00:00:00 [place] Fam flor molina ENLISTED ADVISOR: Medical - Practi merry [address] [email or web address] [email or web address], [address] [address], [place] [address] , Ph. 2019-08-14 2019-09-06 Office Madie Hines [facility] [id number] 15:06:18 15:55:07 Visit Rm, Adc Surg Spec Procedure [place] 3 [id number] [place] [id number] Professio [id number] 2019-08-14 2019-08-14 Outpatient R DONNY [facility] [id number] Univers 15:30:00 16:46:14 MADIE fernandez of [facility] 2007-07-28 2007-07-31 Inpatient X DIXIE BROWNLEE [facility] PSY [id number] Univers 17:47:00 13:10:00 DIXIE BROWNLEE 2 i ty [facility] Results This patient has no known results.
[2021-05-24] MEDS ORDERED: NA CHLORIDE 0.9% 1,000 ML ONE (02:21)
[2021-05-24 02:40] LABS: Absolute Lymphocytes (CBC) 3.2 K/uL (0.7-4.9); Basophils % 0.3 % (0-1.3); Hematocrit 50.7 % (39.6-49.0); MPV 7.5 fL (7.6-11.3); RBC Red Blood Cell Count 5.59 M/uL (4.33-5.43)
[2021-05-24 02:57] LABS: ALT/SGPT 56 U/L (12-78); AST/SGOT 20 U/L (15-37); Alkaline Phosphatase 75 U/L (45-117); BUN Blood Urea Nitrogen 12 mg/dL (7-18); Bicarbonate 28 mmol/L (21-32); Bilirubin Direct < 0.1 mg/dL (0-0.2); Bilirubin Total 0.4 mg/dL (0.2-1.0); Glucose Level 103 mg/dL (74-106); Lipase 129 U/L (73-393); Potassium 3.3 mmol/L (3.5-5.1); Protein, Total 7.4 g/dL (6.4-8.2); Sodium Level 142 mmol/L (136-145)
[2021-05-24] MEDS ORDERED: POTASSIUM CL SA 10 MEQ TAB PO ONE (03:24)
[2021-05-24 03:55] LABS: Urine Blood Negative (Negative); Urine Glucose Negative (Negative); Urine Protein Negative (Negative); Urine Specific Gravity 1.015 (1.005-1.030); Urine pH 6.5 (5.0-7.0)
--- NOTE | 2021-05-24 04:27 | EDPHYS ---
Physician Documentation [facility] Name: Gerardo Barragan Age: 36 yrs Sex: Male : 1985 Arrival Date: 05/24/2021 Time: 01:55 Bed 20 Private MD: ED Physician Stefan Bernard HPI: 05/24 02:16 This 36 yrs old Male presents to ER via Ambulatory with complaints of pkl Testicular Problem. 02:16 The patient presents with scrotal pain, of the left side. Onset: The symptoms/episode pkl began/occurred 2 hour(s) ago. Associated signs and symptoms: Pertinent positives: abdominal pain. The patient has not experienced similar symptoms in the past. Historical: - Allergies: 02:09 Benadryl; bb 02:09 Haldol; bb - Home Meds: 02:09 Risperdal 2 mg Oral tab 1 tab 2 times per day [Active]; Benztropine Mesylate Oral bb [Active]; - PMHx: 02:09 Anxiety; Bipolar disorder; insomnia; tremors; bb - PSHx: 02:09 Tonsillectomy; dental surgery; hand surgery; bb - Immunization history:: Adult Immunizations up to date, Client reports receiving the 2nd dose of the Covid vaccine. - Social history:: Smoking status: Patient reports the use of cigarette tobacco products, smokes one pack cigarettes per day. Patient/guardian denies using alcohol, street drugs. ROS: 02:16 Eyes: Negative for injury, pain, redness, and discharge, ENT: Negative for injury, pkl pain, and discharge, Neck: Negative for injury, pain, and swelling, Cardiovascular: Negative for chest pain, palpitations, and edema, Respiratory: Negative for shortness of breath, cough, wheezing, and pleuritic chest pain. 02:16 Abdomen/GI: Positive for abdominal pain, of the right lower quadrant and left lower quadrant. 02:16 Back: Negative for acute changes. 02:16 : Positive for testicular pain 02:16 MS/extremity: Negative for acute changes. 02:16 Skin: Negative for rash. 02:16 Neuro: Negative for altered mental status, loss of consciousness. Exam: 02:16 Head/Face: Normocephalic, atraumatic. Eyes: Pupils equal round and reactive to light, pkl extra-ocular motions intact. Lids and lashes normal. Conjunctiva and sclera are non-icteric and not injected. Cornea within normal limits. Periorbital areas with no swelling, redness, or edema. ENT: Nares patent. No nasal discharge, no septal abnormalities noted. Tympanic membranes are normal and external auditory canals are clear. Oropharynx with no redness, swelling, or masses, exudates, or evidence of obstruction, uvula midline. Mucous membranes moist. Neck: Trachea midline, no thyromegaly or masses palpated, and no cervical lymphadenopathy. Supple, full range of motion without nuchal rigidity, or vertebral point tenderness. No Meningismus. Chest/axilla: Normal chest wall appearance and motion. Nontender with no deformity. No lesions are appreciated. Cardiovascular: Regular rate and rhythm with a normal S1 and S2. No gallops, murmurs, or rubs. Normal PMI, no JVD. No pulse deficits. Respiratory: Lungs have equal breath sounds bilaterally, clear to auscultation and percussion. No rales, rhonchi or wheezes noted. No increased work of breathing, no retractions or nasal flaring. 02:16 Abdomen/GI: Bowel sounds: normal, Palpation: soft, nontender, in all quadrants. 02:16 Back: Exam negative for acute changes. 02:16 : Male external genitalia: tenderness, is not appreciated. 02:16 Musculoskeletal/extremity: Exam is negative for acute changes. 02:16 Skin: Exam negative for rash. 02:16 Neuro: Orientation: is normal, Mentation: is normal, Cranial nerves: grossly normal, Motor: is normal. Vital Signs: 02:07 BP 142 / 105; Pulse 113; Resp 16 S; Temp 98(O); Pulse Ox 97% on R/A; Weight 81.65 kg bb (R); Height 6 ft. 3 in. (190.50 cm) (R); Pain 6/10; 02:26 BP 135 / 99 LA Sitting (auto/reg); Pulse 96 MON; Resp 16 S; Temp 98.0(O); Pulse Ox 98% kc4 on R/A; Pain 5/10; 04:25 BP 130 / 82; Pulse 68; Resp 18; Temp 98.0(O); Pulse Ox 98% on R/A; Pain 3/10; kc4 02:07 Body Mass Index 22.50 (81.65 kg, 190.50 cm) bb MDM: 02:01 Patient medically screened. pkl 04:23 Data reviewed: vital signs, nurses notes, lab test result(s), radiologic studies, CT pkl scan, ultrasound. ED course: Patient feeling better. Discussed lab and imaging with patient. Advised to follow up with PCP in 2 to 3 days. To return if necessary. Patient understood instructions. 05/24 02:15 Order name: Basic Metabolic Panel; Complete Time: 03:03 pkl 05/24 02:15 Order name: CBC with Diff; Complete Time: 02:43 pkl 05/24 02:15 Order name: Hepatic Function; Complete Time: 03:03 pkl 05/24 02:15 Order name: Lipase; Complete Time: 03:03 pkl 05/24 02:16 Order name: US Scrotum Testicles pkl 05/24 03:54 Order name: Urine Dipstick-Ancillary; Complete Time: 04:31 EDMS 05/24 02:15 Order name: IV Saline Lock; Complete Time: 02:31 pkl 05/24 02:15 Order name: Labs collected and sent; Complete Time: 02:31 pkl 05/24 02:15 Order name: Urine Dipstick-Ancillary (obtain specimen); Complete Time: 03:57 pkl 05/24 03:04 Order name: CT Abd/Pelvis - IV Contrast Only pkl Administered Medications: 02:31 Drug: NS 0.9% 1000 ml Route: IV; Rate: 125 ml/hr; Site: right antecubital; kc4 04:40 Follow up: IV Status: Completed infusion kc4 03:48 Drug: K-Dur (potassium chloride) 40 mEq Route: PO; kc4 04:16 Follow up: Response: No adverse reaction kc4 Disposition Summary: 05/24/21 04:27 Discharge Ordered Location: Home pkl Problem: new pkl Symptoms: have improved pkl Condition: Stable pkl Diagnosis - Left testicle varicocele. Abdominal pain pkl Followup: pkl - With: Private Physician - When: 2 - 3 days - Reason: Re-evaluation by your physician Discharge Instructions: - Discharge Summary Sheet bb Forms: - Medication Reconciliation Form pkl - Thank You Letter pkl - Antibiotic Education pkl - Prescription Opioid Use pkl Signatures: Dispatcher [employer] EDMS Bernard Pin, MD MD pkl Kaylah Snow, RN RN bb Kathleen Mcgraw kc4
--- NOTE | 2021-05-24 04:27 | ER ---
Nurse's Notes [facility] Name: Gerardo Barragan Age: 36 yrs Sex: Male : 1985 Arrival Date: 05/24/2021 Time: 01:55 Bed 20 Private MD: Diagnosis: Left testicle varicocele. Abdominal pain Presentation: 05/24 02:07 Chief complaint: Patient states: he started having lower abdominal pain since midnight bb he looked it up and thinks it may be testicular torsion denies nausea, vomiting or diarrhea. Coronavirus screen: At this time, the client does not indicate any symptoms associated with coronavirus-19. Ebola Screen: No symptoms or risks identified at this time. Initial Sepsis Screen: Does the patient meet any 2 criteria? No. Patient's initial sepsis screen is negative. Does the patient have a suspected source of infection? No. Patient's initial sepsis screen is negative. Risk Assessment: Do you want to hurt yourself or someone else? Patient reports no desire to harm self or others. Onset of symptoms was May 24, 2021. 02:07 Method Of Arrival: Ambulatory bb 02:07 Acuity: SANTANA 3 bb Historical: - Allergies: 02:09 Benadryl; bb 02:09 Haldol; bb - Home Meds: 02:09 Risperdal 2 mg Oral tab 1 tab 2 times per day [Active]; Benztropine Mesylate Oral bb [Active]; - PMHx: 02:09 Anxiety; Bipolar disorder; insomnia; tremors; bb - PSHx: 02:09 Tonsillectomy; dental surgery; hand surgery; bb - Immunization history:: Adult Immunizations up to date, Client reports receiving the 2nd dose of the Covid vaccine. - Social history:: Smoking status: Patient reports the use of cigarette tobacco products, smokes one pack cigarettes per day. Patient/guardian denies using alcohol, street drugs. Screenin:38 Abuse screen: Denies threats or abuse. Denies injuries from another. Nutritional kc4 screening: No deficits noted. On no prescribed diet Difficulty chewing/swallowing? No. Tuberculosis screening: No symptoms or risk factors identified. Never had TB. Possible symptoms: None Risk factors: None. Fall Risk None identified. No fall in past 12 months (0 pts). No secondary diagnosis (0 pts). IV access (20 points). Ambulatory Aid- None/Bed Rest/Nurse Assist (0 pts). Gait- Normal/Bed Rest/Wheelchair (0 pts) Mental Status- Oriented to own ability (0 pts). Total Turner Fall Scale indicates No Risk (0-24 pts). Assessment: 02:23 General: Appears in no apparent distress. comfortable, slender, Behavior is calm, kc4 cooperative, appropriate for age, Denies fever, feeling ill, fatigue, chills. Pain: Complains of pain in left lower quadrant and right lower quadrant Pain does not radiate. Pain currently is 5 out of 10 on a pain scale. at worst was 6 out of 10 on a pain scale. level that patient reports is acceptable is 2 out of 10 on a pain scale. Quality of pain is described as aching, shooting, Pain began 2 hours ago. Is continuous. Neuro: No deficits noted. Cardiovascular: Capillary refill < 3 seconds Patient's skin is warm and dry. Pulses are all present. Rhythm is sinus tachycardia Chest pain is denied. Respiratory: No deficits noted. GI: No deficits noted. No signs and/or symptoms were reported involving the gastrointestinal system. : No deficits noted. No signs and/or symptoms were reported regarding the genitourinary system. EENT: No deficits noted. No signs and/or symptoms were reported regarding the EENT system. Derm: No deficits noted. No signs and/or symptoms reported regarding the dermatologic system. Musculoskeletal:. Vital Signs: 02:07 BP 142 / 105; Pulse 113; Resp 16 S; Temp 98(O); Pulse Ox 97% on R/A; Weight 81.65 kg bb (R); Height 6 ft. 3 in. (190.50 cm) (R); Pain 6/10; 02:26 BP 135 / 99 LA Sitting (auto/reg); Pulse 96 MON; Resp 16 S; Temp 98.0(O); Pulse Ox 98% kc4 on R/A; Pain 5/10; 04:25 BP 130 / 82; Pulse 68; Resp 18; Temp 98.0(O); Pulse Ox 98% on R/A; Pain 3/10; kc4 02:07 Body Mass Index 22.50 (81.65 kg, 190.50 cm) ED Course: 01:55 Patient arrived in ED. bp1 02:00 Patient has correct armband on for positive identification. Placed in gown. Bed in low kc4 position. Call light in reach. Side rails up X 1. 02:01 Stefan Bernard MD is Attending Physician. pkl 02:09 Triage completed. bb 02:09 Arm band placed on Patient placed in an exam room, on a stretcher, on pulse oximetry. bb 02:18 Kathleen Mcgraw is Primary Nurse. kc4 02:31 Basic Metabolic Panel Sent. kc4 02:31 CBC with Diff Sent. kc4 02:31 Hepatic Function Sent. kc4 02:31 Lipase Sent. kc4 03:22 US Scrotum Testicles In Process Unspecified. EDMS 03:34 CT Abd/Pelvis - IV Contrast Only In Process Unspecified. EDMS 04:38 No provider procedures requiring assistance completed. IV discontinued, intact, kc4 bleeding controlled, No redness/swelling at site. Pressure dressing applied. Administered Medications: 02:31 Drug: NS 0.9% 1000 ml Route: IV; Rate: 125 ml/hr; Site: right antecubital; kc4 04:40 Follow up: IV Status: Completed infusion kc4 03:48 Drug: K-Dur (potassium chloride) 40 mEq Route: PO; kc4 04:16 Follow up: Response: No adverse reaction kc4 Outcome: 04:27 Discharge ordered by . pkl 04:38 Discharged to home ambulatory. kc4 04:38 Condition: stable 04:38 Discharge instructions given to patient, Instructed on discharge instructions, follow up and referral plans. medication usage, Demonstrated understanding of instructions, follow-up care. 04:40 Patient left the ED. kc4 Signatures: Dispatcher [employer] EDMS Stefan Bernard MD MD pkKaylah Easton, RN RN Kamila Hernandez bp1 Kathleen Mcgraw kc4
[2021-05-24 04:48] VITALS: TEMP 98; O2SAT 98
[2021-05-24 04:50] VITALS: BP 130/82
--- NOTE | 2021-05-25 10:09 | RAD REPORT ---
EXAM DESCRIPTION: CT - Abdomen Pelvis W Contrast - 05/24/2021 6:29 am CLINICAL HISTORY: 36 years, Male, left testcular pain COMPARISON: None. FINDINGS: Multiple grayscale images of the testicles were performed. Color Doppler imaging was used to assess vascular flow. The right testicle measures 2.9 x 4.1 x 2.6 cm, the right epididymis measured 0.7 cm. There is a sm all hydrocele. The left testicle measured 3.8 x 3.8 x 2.3 cm, the left epididymis measured 0.4 cm. There is a tiny c yst measuring 0.3 x 0.3 cm corresponding to most likely epididymal head cyst. There is a small hydr ocele. There are mild prominent vascular structures within the left lateral scrotal sacs perhaps sugg esting small varicocele There is normal flow within both testicle and epididymis. No hypoechoic lesions were demonstrated. IMPRESSION: SMALL BILATERAL HYDROCELES. PROBABLE LEFT TESTICLE VARICOCELE. NO TESTICULAR LESION AND/OR ABNORMAL FLOW IDENTIFIED. 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 The interpreting radiologist is fully responsible for the content of the report.
--- NOTE | 2021-05-25 11:18 | RAD REPORT ---
EXAM DESCRIPTION: US - Scrotum Testicles - 05/24/2021 3:22 am CLINICAL HISTORY: 36 years, Male, left testcular pain COMPARISON: None. FINDINGS: Multiple grayscale images of the testicles were performed. Color Doppler imaging was used to assess vascular flow. The right testicle measures 2.9 x 4.1 x 2.6 cm, the right epididymis measured 0.7 cm. There is a sm all hydrocele. The left testicle measured 3.8 x 3.8 x 2.3 cm, the left epididymis measured 0.4 cm. There is a tiny c yst measuring 0.3 x 0.3 cm corresponding to most likely epididymal head cyst. There is a small hydr ocele. There are mild prominent vascular structures within the left lateral scrotal sacs perhaps sugg esting small varicocele There is normal flow within both testicle and epididymis. No hypoechoic lesions were demonstrated. IMPRESSION: SMALL BILATERAL HYDROCELES. PROBABLE LEFT TESTICLE VARICOCELE. NO TESTICULAR LESION AND/OR ABNORMAL FLOW IDENTIFIED. 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 The interpreting radiologist is fully responsible for the content of the report.
== END 2021-05-24 04:40 | disposition home or self-care (01) ==
LOC: ER 01:52
DX: I86.1 Scrotal varices (principal); F31.9 Bipolar disorder, unspecified; F17.210 Nicotine dependence, cigarettes, uncomplicated; Z88.5 Allergy status to narcotic agent; Z88.8 Allergy status to other drugs, medicaments and biological substances
CPT/HCPCS: 96361; 85025; 80048; 36415; 80076; 81003; 83690; 74177; 76870; 96360; 99284; Q9967; J7030

== ENCOUNTER 2024-01-13 15:31 | Emergency (ER) | payer OTHER, SELFPAY ==
--- OUTSIDE RECORDS SUMMARY | 2024-01-13 15:35 | XMS REPORT | Continuity of Care Document ---
Author Name Unknown Address [address] [facility] [address] [place] [address] [facility] thconnect Address [address] [facility] [address] [place] [address] Care Team Providers Care Game Manager Name Role Phone Pcp, Patient Does Not Have A Primary Care Physic karime HennessyClaudia L Attending Clinician Unavailable Doctor Unassigned, Leigh Attending Clinician U navailable Yudi_A_AH Attending Clinician Unavailable Madie Hines MD Attending Clinician , Adc Surg Spec Procedure Attending Clinician Unavailable MADIE HINES Attending Clinician Unavailable DIXIE BROWNLEE Attending Clinician Unavailable DIXIE BROWNLEE Attending Clinician Unavailable Stephany-Sobiaayo_A_AH Admitting Clinician Unavailable CLEVELAND LAKHANI Admitting Clinician Unavailab le Payers Payer Name Policy Type Policy Number Effective Date Expirati on Date Source [employer] C1 [id number] Commo n [facility] (MEDICARE REPLACEMENT/ADV ANTAGE - HMO) [id number] 2019 00:00:00 Problems Condition Name Condition Details Condition Category Status Onset Date Resolution Date Last Treatment Date Treating Clinician Comments Source [id number] Adult general medical exam Problem Common [facility] [id number] Dermatitis Problem Com mon [facility] [id number] Current smoker Problem [facility] [id number] Schizophre adalgisa, unspecifie d type Problem [facility] [id number] Primary insomnia Problem [facility] Allergies, Adverse Reactions, Alerts Allergy Name Allergy Type Status Severity Reaction(s) Onset Date Inactive Date Treating Clinician Comments Source No Known Drug Allergie s DA Active U 11-19 00:00: 00 [facility] NO KNOWN ALLERGIE S Drug Class Active [facility] Social History Social Habit Start Date Stop Date Quantity Comments Source Sexual orientation U [facility] History of Tobacco Use Current Smoker [facility] Exposure to SARS-CoV-2 (event) 2020-02-09 00:00:00 2020-03-10 14:49:00 Not sure [facility] History of Social function 2020-02-14 00:00:00 2020-02-14 00:00:00 [facility] Sex Assigned At 1985 00:00:00 1985 00:00:00 [facility] Smoking Status Start Date Stop Date Source Tobacco smoking consumption unknown [facility] Light Tobacco Smoker [facility] Current Smoker 2021-11-03 00:00:00 [facility] Medications Ordered Medication Name Filled Medication Name Start Date Stop Date Current Medication? Ordering Clinician Indication Dosage Frequency Signature (SIG) Comments Components Source Chantix Starting Month Jacob .5mg Chantix Starting Month Jacob .5mg 2020-07 00:00: 00 No QD Chantix Starting Month Jacob .5mg Ketoconazol e 2 % Ketoconazol e 2 % 2020-07 00:00: 00 07-05 00:00 :00 No BID Ketoconazo le 2 % PALIPERIDON E 6 MG ORAL TO24 07-31 00:00: 00 Yes 1 Tab Oral DAILY [facility] benztropine 1 mg tablet Take 1 tablet twice a day by oral route with meals. benztropine 1 mg tablet Take 1 tablet twice a day by oral route with meals. No 1 BID benztropin e 1 mg tablet Take 1 tablet twice a day by oral route with meals. [facility] hydroxyzine HCl 1 tab a day three times a day hydroxyzine HCl 1 tab a day three times a day No hydroxyzin e HCl 1 tab a day three times a day [facility] risperidone 2 mg dis[address] ing tablet Place 1 tablet twice a day by translingua l route with meals. risperidone 2 [address] ing tablet Place 1 tablet twice a day by translingua l route with meals. No 1 BID risperidon e [address] tablet [address] 1 tablet twice a day by translingu al route with meals. [facility] Benztropine Mesylate 2 MG Benztropine Mesylate 2 MG No 1{table t} BID Benztropin e Mesylate 2 MG risperiDONE 4 MG risperiDONE 4 MG No 1{table t} BID risperiDON E 4 MG Benztropine Mesylate 2 MG Benztropine Mesylate 2 MG No 1{table t} BID Benztropin e Mesylate 2 MG risperiDONE 4 MG risperiDONE 4 MG No 1{table t} BID risperiDON E 4 MG Vital Signs Vital Name Observation Time Observation Value Comments S ource height 2021-06-19 15:00:00 75 [in_i] Commo n [facility] weight 2021-06-19 15:00:00 191.2 [lb_av] Co mmon [facility] temperature 2021-06-19 15:00:00 97.6 [degF] Com mon [facility] bmi 2021-06-19 15:00:00 23.9 kg/m2 [facility] n [facility] oximetry 2021-06-19 15:00:00 95 % [facility] n [facility] respiratory rate 2021-06-19 15:00:00 16 /min Common [facility] blood pressure systolic 2021-06-19 15:00:00 133 mm[Hg] Common [facility] blood pressure diastolic 2021-06-19 15:00:00 88 mm[Hg] Common [facility] BP Diastolic 2019-09-11 00:00:00 80 mm[Hg] [facility] Height 2019-09-11 00:00:00 74 [in_i] [facility] BMI (Body Mass Index) 2019-09-11 00:00:00 22.5 kg/m2 [facility] BP Systolic 2019-09-11 00:00:00 115 mm[Hg] [facility] Body Weight 2019-09-11 00:00:00 175 [lb_av] [facility] 02 Sat by Pulse Oximetry 2020-11-19 17:22:44 99 /min Body Mass Index 2020-11-19 17:22:44 20.0 Height 2020-11-19 17:22:44 190.5\S\75 Pulse Rate 2020-11-19 17:22:44 78 /min Respiratory Rate 2020-11-19 17:22:44 19 /min Temperature 2020-11-19 17:22:44 36.7\S\98.1 Weight 2020-11-19 17:22:44 83522.779\S\2560 Respiratory 2020-11-19 17:22:43 No respirato ry distress /min Respiratory 2020-11-19 17:11:21 No respirato ry distress /min 02 Sat by Pulse Oximetry 2020-11-19 17:11:21 99 /min Body Mass Index 2020-11-19 17:11:21 20.0 Height 2020-11-19 17:11:21 190.5\S\75 Pulse Rate 2020-11-19 17:11:21 78 /min Respiratory Rate 2020-11-19 17:11:21 19 /min Temperature 2020-11-19 17:11:21 36.7\S\98.1 Weight 2020-11-19 17:11:21 67962.779\S\2560 Respiratory 2020-11-19 16:06:27 No respirato ry distress /min 02 Sat by Pulse Oximetry 2020-11-19 16:06:27 99 /min Body Mass Index 2020-11-19 16:06:27 20.0 Height 2020-11-19 16:06:27 190.5\S\75 Pulse Rate 2020-11-19 16:06:27 78 /min Respiratory Rate 2020-11-19 16:06:27 19 /min Temperature 2020-11-19 16:06:27 36.7\S\98.1 Weight 2020-11-19 16:06:27 17287.779\S\2560 Respiratory 2020-11-19 15:51:02 No respirato ry distress /min 02 Sat by Pulse Oximetry 2020-11-19 15:51:02 99 /min Body Mass Index 2020-11-19 15:51:02 20.0 Height 2020-11-19 15:51:02 190.5\S\75 Pulse Rate 2020-11-19 15:51:02 78 /min Respiratory Rate 2020-11-19 15:51:02 19 /min Temperature 2020-11-19 15:51:02 36.7\S\98.1 Weight 2020-11-19 15:51:02 33894.779\S\2560 Respiratory 2020-11-19 15:50:32 No respirato ry distress /min 02 Sat by Pulse Oximetry 2020-11-19 15:50:32 99 /min Body Mass Index 2020-11-19 15:50:32 20.0 Height 2020-11-19 15:50:32 190.5\S\75 Pulse Rate 2020-11-19 15:50:32 78 /min Respiratory Rate 2020-11-19 15:50:32 19 /min Temperature 2020-11-19 15:50:32 36.7\S\98.1 Weight 2020-11-19 15:50:32 61116.779\S\2560 Respiratory 2020-11-19 15:50:31 No respirato ry distress /min 02 Sat by Pulse Oximetry 2020-11-19 15:50:31 99 /min Body Mass Index 2020-11-19 15:50:31 20.0 Height 2020-11-19 15:50:31 190.5\S\75 Pulse Rate 2020-11-19 15:50:31 78 /min Respiratory Rate 2020-11-19 15:50:31 19 /min Temperature 2020-11-19 15:50:31 36.7\S\98.1 Weight 2020-11-19 15:50:31 92037.779\S\2560 Respiratory 2020-11-19 15:49:59 No respirato ry distress /min 02 Sat by Pulse Oximetry 2020-11-19 15:49:59 99 /min Body Mass Index 2020-11-19 15:49:59 20.0 Height 2020-11-19 15:49:59 190.5\S\75 Pulse Rate 2020-11-19 15:49:59 78 /min Respiratory Rate 2020-11-19 15:49:59 19 /min Temperature 2020-11-19 15:49:59 36.7\S\98.1 Weight 2020-11-19 15:49:59 81030.779\S\2560 Respiratory 2020-11-19 15:17:34 No respirato ry distress /min 02 Sat by Pulse Oximetry 2020-11-19 15:17:34 99 /min Body Mass Index 2020-11-19 15:17:34 20.0 Height 2020-11-19 15:17:34 190.5\S\75 Pulse Rate 2020-11-19 15:17:34 78 /min Respiratory Rate 2020-11-19 15:17:34 19 /min Temperature 2020-11-19 15:17:34 36.7\S\98.1 Weight 2020-11-19 15:17:34 73160.779\S\2560 02 Sat by Pulse Oximetry 2020-11-19 14:20:07 99 /min Body Mass Index 2020-11-19 14:20:07 20.0 Height 2020-11-19 14:20:07 190.5\S\75 Pulse Rate 2020-11-19 14:20:07 78 /min Respiratory Rate 2020-11-19 14:20:07 19 /min Temperature 2020-11-19 14:20:07 36.7\S\98.1 Weight 2020-11-19 14:20:07 13991.779\S\2560 02 Sat by Pulse Oximetry 2020-11-19 14:01:33 99 /min Body Mass Index 2020-11-19 14:01:33 20.0 Height 2020-11-19 14:01:33 190.5\S\75 Pulse Rate 2020-11-19 14:01:33 78 /min Respiratory Rate 2020-11-19 14:01:33 19 /min Temperature 2020-11-19 14:01:33 36.7\S\98.1 Weight 2020-11-19 14:01:33 09307.779\S\2560 WEIGHT 2020-11-19 13:57:00 72.822711 kg HEIGHT 2020-11-19 13:57:00 190.5 cm Plan of Care Planned Activity Planned Date Details Comments Source Instructions [facility] Encounters Start Date/Time End Date/Time Encounter Type Admission Type Attending [facility] Facility Care Department Encounter ID Source 2021-08-05 14:24:22 Outpatient Claudia Hennessy [facility] [id number] [facility] 2021-08-05 14:23:33 Outpatient Claudia Hennessy [facility]IR[facility] [id number] [facility] 2021-08-05 14:22:06 Outpatient Claudia Hennessy STSYDNEY [facility] [id number] [facility] 2021-08-05 14:06:26 Outpatient Claudia Hennessy [facility]IR[facility] [id number] [facility] 2020-11-19 13:51:00 Inpatient [facility] [id number] [facility] 2021-10-28 00:00:00 2021-10-28 00:00:00 OFFICE VISIT ESTAB PT LEVEL 3 [facility] [id number] [facility] 2021-06-19 00:00:00 2021-06-19 00:00:00 SUB ANNUAL [facility] WELLNESS VISIT [facility] [id number] [facility] 2021-05-19 00:00:00 2021-05-19 00:00:00 (TEL) [facility] ST[facility] [id number] [facility] 2020-11-19 13:51:00 2020-11-19 13:51:00 Emergency [facility] [id number] [facility] 2020-03-11 00:00:00 2020-03-11 00:00:00 Patient Secure Msg Doctor Unassigned, Leigh TRAE EGAN [id number] [facility] 2020-03-10 14:40:00 2020-03-10 14:40:00 Outpatient R [facility] [id number] [facility] 2019-12-18 12:41:00 2019-12-18 12:41:00 Outpatient Stephany-Mbayo _A_AH VFP VFP [id number] [facility] 2019-11-13 12:26:00 2019-11-13 12:26:00 Outpatient Stephany-Mbayo _A_AH VFP VFP [id number] [facility] 2019-10-09 02:27:00 2019-10-09 02:27:00 Outpatient Stephany-Mbayo _A_AH VFP VFP [id number] [facility] 2019-10-08 03:39:00 2019-10-08 03:39:00 Outpatient Stephany-Mbayo _A_AH VFP VFP [id number] [facility] 2019-09-28 06:56:00 2019-09-28 06:56:00 Outpatient Stephany-Mbayo _A_AH VFP VFP [id number] [facility] 2019-09-26 01:52:00 2019-09-26 01:52:00 Outpatient Stephany-Mbayo _A_AH VFP VFP [id number] [facility] 2019-09-21 05:31:00 2019-09-21 05:31:00 Outpatient Stephany-Mbayo _A_AH VFP VFP [id number] [facility] 2019-09-20 06:52:00 2019-09-20 06:52:00 Outpatient Stephany-Mbayo _A_AH VFP VFP [id number] [facility] 2019-09-19 03:20:00 2019-09-19 03:20:00 Outpatient Stephany-Mbayo _A_AH VFP VFP [id number] [facility] 2019-09-18 04:12:00 2019-09-18 04:12:00 Outpatient Stephany-Mbayo _A_AH VFP VFP [id number] [facility] 2019-09-11 00:00:00 2019-09-11 00:00:00 Katerin Stephany-Cass o, INVENTORY CONTROL ASSISTANT: [address] [facility], [address], [place] [address] , Ph. VFP [place] - [facility] - [email or web address]@_ [place] Direct [id number] [facility] 2019-08-14 15:06:18 2019-09-06 15:55:07 Office Visit Madie Hines, Adc Surg Spec Procedure [facility] [id number] 2019-09-03 03:06:00 2019-09-03 03:06:00 Outpatient Stephany-Mbayo _A_AH VFP VFP [id number] [facility] 2019-09-03 03:06:00 2019-09-03 03:06:00 Outpatient Stephany-Mbayo _A_AH VFP VFP [id number] [facility] 2019-08-14 15:30:00 2019-08-14 16:46:14 Outpatient MADIE DAVENPORT [facility] [id number] [facility] 2007-07-28 17:47:00 2007-07-31 13:10:00 Inpatient DIXIE WELLS [facility] PSY [id number] [address] [place] [address] Results Test Description Test Time Test Comments Results Result Co mments Source COVID-19 Status: AsymptomaticComplete Blood Count Auto [id number] 14:16:00* Test Item Value Reference Range Interpretation Comme nts White Blood Count (test code = WBCT) 6.8 x10 3/uL 4.4-10.5 N Red Blood Count (test code = RBC) 5.47 x10 6/uL 4.10-5.70 N Hemoglobin (test code = HGBT) 16.2 g/dL 13.4-17.4 N Hematocrit (test code = HCTT) 48.8 % 38.7-52.0 N Mean Corpuscular Volume (nasir t code = MCV) 89.20 fL 80.00-100.00 N Mean Corpuscular Hemoglobin (test code = MCH) 29.6 pg 27.0-32.5 N Mean Corpuscular HGB Conc (test code = MCHC) 33.20 g/dL 32.00-37.50 N RDW Coefficient of Variation (test code = RDWCV) 12.2 % 11.5-14.5 N Platelet Count (test code = PLTT) 219.0 x10 3/uL 140.0-440.0 N Mean Platelet Volume (test code = MPV) 10.1 fL Immature Granulocytes % (Aut o) (test code = IMMGRAN%) 0.1 % 0.0-5.0 N Neutrophils % (Auto) (test code = NE%) 45.0 % 36.0-70.0 N Lymphocytes % (Auto) (test code = LY%) 44.9 % 12.0-44.0 H Monocytes % (Auto) (test cod e = MO%) 7.9 % 0.0-11.0 N Eosinophils % (Auto) (test code = EO%) 1.8 % 0.0-7.0 N Basophils % (Auto) (test cod e = BA%) 0.3 % 0.0-2.0 N Immature Granulocytes # (Aut o) (test code = IMMGRAN#) 0.01 x10 3/uL Neutrophils # (Auto) (test code = NE#) 3.1 x10 3/uL 1.6-7.4 N Lymphocytes # (Auto) (test code = LY#) 3.06 x10 3/uL 0.50-4.60 N Monocytes # (Auto) (test cod e = MO#) 0.54 x10 3/uL 0.00-1.20 N Eosinophils # (Auto) (test code = EO#) 0.12 x10 3/uL 0.00-0.74 N Basophils # (Auto) (test cod e = BA#) 0.02 x10 3/uL 0.00-0.21 N nRBC Abs (test code = NRBCA) 0 nRBC Pct (test code = NRBCP) 0 % Comprehensive Metabolic [id number] 14:16:00* Test Item Value Reference Range Interpretation Comme nts SODIUM (test code = NA) 146.0 mmol/L 136.0-145.0 H Potassium,K (test code = K) 4.3 mmol/L 3.0-5.1 N Chloride (test code = CL) 110 mmol/L 98-107 H Carbon Dioxide (test code = CO2) 31 mmol/L 20-31 N Anion Gap (test code = GAP) 5 mmol/L 5-15 N Blood Urea Nitrogen (test co de = BUN) 24 mg/dL 9-23 H Creatinine (test code = CREATT) 1.00 mg/dL 0.55-1.02 N Creatinine Clr Calc Pharmacy (test code = CRCLPHA) 107.85 mL/min Estimated GFR ( Ameri ca (test code = EGFRAA) > 60 mL/min/1.73m2 Estimated GFR (Non Afr Ameri ca (test code = EGFRNAA) > 60 mL/min/1.73m2 BUN/Creatinine Ratio (test c ode = BCRATIO) 24 ratio 10-20 H Glucose (test code = GLU) 91 mg/dL 74-106 N Osmolality,Calculated (test code = OSMOC) 305.5 Calcium (test code = CA) 9.5 mg/dL 8.3-10.6 N Bilirubin,Total (test code = BILIT) 0.7 mg/dL 0.2-1.1 N Aspartate Amino Transferase (test code = AST) 23 U/L 0-34 N Alanine Aminotransferase (te st code = ALT) 36 U/L 10-49 N Total Protein (test code = TP) 7.2 g/dL 5.7-8.2 N Albumin Level (test code = ALB) 4.8 g/dL 3.2-4.8 N Globulin (test code = GLOB) 2.4 mg/dL 2.3-3.5 N Albumin/Globulin Ratio (test code = AGRATIO) 2.0 ratio 0.8-2.0 N Alkaline Phosphatase (test c ode = ALP) 110 U/L 46-116 N Ethanol [id number] 14:16:00* Test Item Value Reference Range Interpretation Comme nts Ethanol (test code = ETOH) < 3 mg/dL
[2024-01-13] MEDS ORDERED: IBUPROFEN 400 MG TAB ONE (15:50)
--- NOTE | 2024-01-13 16:32 | RAD REPORT ---
EXAM DESCRIPTION: RAD - Hand Right 3 View - 01/13/2024 4:16 pm CLINICAL HISTORY: Right hand pain status post injury FINDINGS: Sideplate and screws affix an old metacarpal fracture No acute fracture or dislocation
--- NOTE | 2024-01-13 16:37 | ER ---
Nurse's Notes [facility] Name: Gerardo Barragan Age: 38 yrs Sex: Male : 1985 Arrival Date: 01/13/2024 Time: 15:31 Bed 11 Private MD: Diagnosis: Contusion of right hand Presentation: 01/12 15:45 Chief complaint: Patient states: R hand pain, swelling, bruising after a punch last ll1 night. Coronavirus screen: Client denies travel out of the [place] in the last 14 days. At this time, the client does not indicate any symptoms associated with coronavirus-19. Ebola Screen: Patient denies travel to an Ebola-affected area in the 21 days before illness onset. Initial Sepsis Screen: Does the patient meet any 2 criteria? No. Patient's initial sepsis screen is negative. Does the patient have a suspected source of infection? No. Patient's initial sepsis screen is negative. Risk Assessment: Do you want to hurt yourself or someone else? Patient reports no desire to harm self or others. Onset of symptoms was January 12, 2024. 15:45 Method Of Arrival: Ambulatory ll1 15:45 Acuity: SANTANA 4 ll1 Triage Assessment: 15:47 General: Appears uncomfortable, Behavior is calm, cooperative, appropriate for age. ll1 Pain: Complains of pain in right hand Quality of pain is described as aching. Musculoskeletal: Circulation, motion, and sensation intact. Capillary refill < 3 seconds, Reports pain in right hand. Injury Description: Bruise sustained to right hand. Historical: - Allergies: 15:44 Benadryl; ll1 15:44 Haldol; ll1 15:44 "Psych meds"; ll1 - PMHx: 15:44 Anxiety; Bipolar disorder; insomnia; tremors; ll1 - PSHx: 15:44 dental surgery; hand surgery; Tonsillectomy; ll1 - Immunization history:: Adult Immunizations up to date. - Infectious Disease History:: Denies. - Social history:: Smoking status: Patient reports the use of cigarette tobacco products, smokes one pack cigarettes per day. - Family history:: not pertinent. Screenin:42 [facility] ED Fall Risk Assessment (Adult) History of falling in the last 3 months, as6 including since admission No falls in past 3 months (0 pts) Confusion or Disorientation No (0 pts) Intoxicated or Sedated No (0 pts) Impaired Gait No (0 pts) Mobility Assist Device Used No (0 pt) Altered Elimination No (0 pt) Score/Fall Risk Level 0 - 2 = Low Risk Oriented to surroundings, Maintained a safe environment, Educated pt \\T\\ family on fall prevention, incl call for assistance when getting out of bed, Assessed \\T\\ reinforced patient's understanding of fall precautions. Abuse screen: Denies threats or abuse. Denies injuries from another. Nutritional screening: No deficits noted. Tuberculosis screening: No symptoms or risk factors identified. Assessment: 16:42 Reassessment: Patient appears in no apparent distress at this time. Patient states as6 feeling better. Vital Signs: 15:45 BP 151 / 102; Pulse 82; Resp 17; Temp 97.6; Pulse Ox 100% on R/A; Weight 73.03 kg; ll1 Height 6 ft. 2 in. ; Pain 6/10; 16:41 BP 148 / 94; Pulse 70; Resp 15; Pulse Ox 100% ; as6 15:45 Body Mass Index 20.67 (73.03 kg, 187.96 cm) ll1 15:45 Pain Scale: Adult ll1 ED Course: 15:36 Patient arrived in ED. im 15:38 Juan Schrader MD is Attending Physician. rt 15:42 Jaydon Gagnon, MANJINDER is Primary Nurse. as6 15:44 Arm band placed on Patient placed in an exam room, on a stretcher. ll1 15:47 Triage completed. ll1 16:17 Hand Right 3 View XRAY In Process Unspecified. EDMS 16:42 Bed in low position. Call light in reach. Provided Education on: follow up. OTC care. as6 Client placed on continuous cardiac and pulse oximetry monitoring. NIBP monitoring applied. 16:43 No provider procedures requiring assistance completed. Patient did not have IV access as6 during this emergency room visit. Administered Medications: 15:52 Drug: Ibuprofen PO 800 mg PO once Route: PO; as6 16:41 Follow up: Response: No adverse reaction as6 Medication: 16:42 VIS not applicable for this client. as6 Outcome: 16:37 Discharge ordered by MD. rt 16:43 Discharged to home ambulatory, as6 16:43 Condition: stable 16:43 Discharge instructions given to patient, Instructed on discharge instructions, follow up and referral plans. Demonstrated understanding of instructions, follow-up care, 16:43 Patient left the ED. as6 Signatures: Dispatcher [employer] Hannah Shelton RN RN ll1 Jaydon Gagnon RN RN as6 Juan Schrader MD MD rt Alisa Bergeron
--- NOTE | 2024-01-13 16:37 | EDPHYS ---
Physician Documentation [facility] Name: Gerardo Barragan Age: 38 yrs Sex: Male : 1985 Arrival Date: 01/13/2024 Time: 15:31 Bed 11 Private MD: ED Physician Juan Schrader HPI: 01/12 16:45 This 38 yrs old Male presents to ER via Ambulatory with complaints of Hand Injury. rt 16:53 Patient presents to the ED with bruising, pain to the right hand after punching a door rt yesterday. Denies other injury, acute complaints, symptoms are moderate severity, no other aggravating or alleviating factors.. Historical: - Allergies: 15:44 Benadryl; ll1 15:44 Haldol; ll1 15:44 "Psych meds"; ll1 - PMHx: 15:44 Anxiety; Bipolar disorder; insomnia; tremors; ll1 - PSHx: 15:44 dental surgery; hand surgery; Tonsillectomy; ll1 - Immunization history:: Adult Immunizations up to date. - Infectious Disease History:: Denies. - Social history:: Smoking status: Patient reports the use of cigarette tobacco products, smokes one pack cigarettes per day. - Family history:: not pertinent. ROS: 16:53 Constitutional: Negative for fever, chills, and weight loss, Skin: Negative for injury, rt rash, and discoloration, Neuro: Negative for headache, weakness, numbness, tingling, and seizure, 16:53 MS/extremity: Positive for contusion, pain, Exam: 16:53 Musculoskeletal/extremity: Bruising noted to the third MCP, no deformities noted, rt pulses, motor, sensation intact no lacerations. 16:53 Constitutional: This is a well developed, well nourished patient who is awake, alert, rt and in no acute distress. Head/Face: Normocephalic, atraumatic. Skin: Warm, dry with normal turgor. Normal color with no rashes, no lesions, and no evidence of cellulitis. Neuro: Awake and alert, GCS 15, oriented to person, place, time, and situation. Cranial nerves II-XII grossly intact. Motor strength 5/5 in all extremities. Sensory grossly intact. Cerebellar exam normal. Normal gait. Vital Signs: 15:45 BP 151 / 102; Pulse 82; Resp 17; Temp 97.6; Pulse Ox 100% on R/A; Weight 73.03 kg; ll1 Height 6 ft. 2 in. ; Pain 6/10; 16:41 BP 148 / 94; Pulse 70; Resp 15; Pulse Ox 100% ; as6 15:45 Body Mass Index 20.67 (73.03 kg, 187.96 cm) ll1 15:45 Pain Scale: Adult ll1 MDM: 15:43 Patient medically screened. rt 16:53 Differential diagnosis: Contusion, fracture. rt 16:53 Data reviewed: vital signs, nurses notes, radiologic studies. Independent rt interpretation of the following test(s) in the Emergency Department X-Ray: My interpretation is No fracture seen on interpretation of x-ray images. Counseling: I had a detailed discussion with the patient and/or guardian regarding the historical points, exam findings, and any diagnostic results supporting the discharge/admit diagnosis, radiology results, the need for outpatient follow up. 01/12 15:48 Order name: Hand Right 3 View XRAY; Complete Time: 16:34 rt Administered Medications: 15:52 Drug: Ibuprofen PO 800 mg PO once Route: PO; as6 16:41 Follow up: Response: No adverse reaction as6 Disposition Summary: 01/13/24 16:37 Discharge Ordered Notes: Location: Home rt Problem: new rt Symptoms: have improved rt Condition: Stable rt Diagnosis - Contusion of right hand rt Followup: rt - With: Private Physician - When: 2 - 3 days - Reason: Discharge Instructions: - Discharge Summary Sheet rt - Contusion rt Forms: - Medication Reconciliation Form rt - Antibiotic Education rt - Prescription Opioid Use rt - Patient Portal Instructions rt - Leadership Thank You Letter rt Signatures: Dispatcher [employer] EDHannah Alcantara RN RN ll1 Jaydon Gagnon RN RN as6 Juan Schrader MD MD rt Corrections: (The following items were deleted from the chart) 15:48 15:48 Hand Right 3 View+RAD.RAD.BRZ ordered. EDDE EDMS
[2024-01-13 16:50] VITALS: BP 148/94; TEMP 97.6; O2SAT 100
== END 2024-01-13 16:43 | disposition home or self-care (01) ==
LOC: ER 15:31
DX: S60.221A Contusion of right hand, initial encounter (principal)
CPT/HCPCS: 99283

== ENCOUNTER 2025-02-13 23:01 | Emergency (ER) | payer OTHER, SELFPAY ==
--- OUTSIDE RECORDS SUMMARY | 2025-02-13 23:05 | XMS REPORT | Continuity of Care Document ---
Author Name Unknown Address [address] [facility] [address] [place] [address] [facility] Address [address] 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 Name Role Phone Pcp, Patient Does Not Have A Primary Care Physic karime Claudia Hennessy Attending Clinician Unavailable Doctor Unassigned, Ruch Attending Clinician U navailable Yudi_A_AH Attending Clinician Unavailable Madie Hines MD Attending Clinician , Adc Surg Spec Procedure Attending Clinician Unavailable MADIE HINES Attending Clinician Unavailable DIXIE BROWNLEE Attending Clinician Unavailable DIXIE BROWNLEE Attending Clinician Unavailable Stephany-Evangelina_A_AH Admitting Clinician Unavailable CLEVELAND LAKHANI Admitting Clinician Unavailab le Payers Payer Name Policy Type Policy Number Effective Date Expirati on Date Source [employer] C1 [id number] Commo n [facility] [employer] [place] [employer] (MEDICARE REPLACEMENT/ADV ANTAGE - HMO) [id number] 2019 00:00:00 Problems Condition Name Condition Details Condition Category Status Onset Date Resolution Date Last Treatment Date Treating Clinician Comments Source [id number] Adult general medical exam Problem Common [facility] [id number] Dermatitis Problem Com [facility] [id number] Current smoker Problem [facility] [id number] Schizophre adalgisa, unspecifie d type Problem [facility] [id number] Primary insomnia Problem [facility] Allergies, Adverse Reactions, Alerts Allergy Name Allergy Type Status Severity Reaction(s) Onset Date Inactive Date Treating Clinician Comments Source No Known Drug Allergie s DA Active U 11-19 00:00: [address] [facility] NO KNOWN ALLERGIE S Drug Class Active [facility] Social History Social Habit Start Date Stop Date Quantity Comments Source Sexual orientation U [facility] History of Tobacco Use Current Smoker [facility] Exposure to SARS-CoV-2 (event) 2020-02-09 00:00:00 2020-03-10 14:49:00 Not sure [facility] History of Social function 2020-02-14 00:00:00 2020-02-14 00:00:00 [facility] Sex Assigned At 1985 00:00:00 1985 00:00:00 [facility] Smoking Status Start Date Stop Date Source Tobacco smoking consumption unknown [facility] Light Tobacco Smoker [facility] Current Smoker 2021-11-03 00:00:00 [facility] Medications Ordered Medication Name Filled Medication Name [...] 00:00: 00 Yes 1 Tab Oral DAILY [facility] benztropine 1 mg tablet Take 1 tablet twice a day by oral route with meals. benztropine 1 mg tablet Take 1 tablet twice a day by oral route with meals. No 1 BID benztropin e 1 mg tablet Take 1 tablet twice a day by oral route with meals. [facility] hydroxyzine HCl 1 tab a day three times a day hydroxyzine HCl 1 tab a day three times a day No hydroxyzin e HCl 1 tab a day three times a day [facility] risperidone 2 mg [address] tablet [address] 1 tablet twice a day by translingua l route with meals. risperidone 2 [address] tablet [address] 1 tablet twice a day by translingua l route with meals. No 1 BID risperidon e [address] tablet [address] 1 tablet twice a day by translingu al route with meals. [facility] Benztropine Mesylate 2 MG [...] height 2021-06-19 15:00:00 75 [in_i] Commo n [facility] weight 2021-06-19 15:00:00 191.2 [lb_av] Co mmon [facility] temperature 2021-06-19 15:00:00 97.6 [degF] Com mon [facility] bmi 2021-06-19 15:00:00 23.9 kg/m2 Commo n [facility] oximetry 2021-06-19 15:00:00 95 % Commo n [facility] respiratory rate 2021-06-19 15:00:00 16 /min Common [facility] blood pressure systolic 2021-06-19 15:00:00 133 mm[Hg] [facility] blood pressure diastolic 2021-06-19 15:00:00 88 mm[Hg] [facility] BP Diastolic 2019-09-11 00:00:00 80 mm[Hg] [facility] Height 2019-09-11 00:00:00 74 [in_i] [facility] BMI (Body Mass Index) 2019-09-11 00:00:00 22.5 kg/m2 [facility] BP Systolic 2019-09-11 00:00:00 115 mm[Hg] [facility] Body Weight 2019-09-11 00:00:00 175 [lb_av] [facility] 02 Sat by Pulse Oximetry 2020-11-19 17:22:44 99 /min Body Mass Index 2020-11-19 17:22:44 20.0 Height 2020-11-19 17:22:44 190.5\S\75 Pulse Rate 2020-11-19 17:22:44 78 /min Respiratory Rate 2020-11-19 17:22:44 19 /min Temperature 2020-11-19 17:22:44 36.7\S\98.1 Weight 2020-11-19 17:22:44 55460.779\S\2560 Respiratory 2020-11-19 17:22:43 No respirato ry distress /min Respiratory 2020-11-19 17:11:21 No respirato ry distress /min 02 Sat by Pulse Oximetry 2020-11-19 17:11:21 99 /min Body Mass Index 2020-11-19 17:11:21 20.0 Height 2020-11-19 17:11:21 190.5\S\75 Pulse Rate 2020-11-19 17:11:21 78 /min Respiratory Rate 2020-11-19 17:11:21 19 /min Temperature 2020-11-19 17:11:21 36.7\S\98.1 Weight 2020-11-19 17:11:21 54611.779\S\2560 Respiratory 2020-11-19 16:06:27 No respirato ry distress /min 02 Sat by Pulse Oximetry 2020-11-19 16:06:27 99 /min Body Mass Index 2020-11-19 16:06:27 20.0 Height 2020-11-19 16:06:27 190.5\S\75 Pulse Rate 2020-11-19 16:06:27 78 /min Respiratory Rate 2020-11-19 16:06:27 19 /min Temperature 2020-11-19 16:06:27 36.7\S\98.1 Weight 2020-11-19 16:06:27 06846.779\S\2560 Respiratory 2020-11-19 15:51:02 No respirato ry distress /min 02 Sat by Pulse Oximetry 2020-11-19 15:51:02 99 /min Body Mass Index 2020-11-19 15:51:02 20.0 Height 2020-11-19 15:51:02 190.5\S\75 Pulse Rate 2020-11-19 15:51:02 78 /min Respiratory Rate 2020-11-19 15:51:02 19 /min Temperature 2020-11-19 15:51:02 36.7\S\98.1 Weight 2020-11-19 15:51:02 94894.779\S\2560 Respiratory 2020-11-19 15:50:32 No respirato ry distress /min 02 Sat by Pulse Oximetry 2020-11-19 15:50:32 99 /min Body Mass Index 2020-11-19 15:50:32 20.0 Height 2020-11-19 15:50:32 190.5\S\75 Pulse Rate 2020-11-19 15:50:32 78 /min Respiratory Rate 2020-11-19 15:50:32 19 /min Temperature 2020-11-19 15:50:32 36.7\S\98.1 Weight 2020-11-19 15:50:32 06869.779\S\2560 Respiratory 2020-11-19 15:50:31 No respirato ry distress /min 02 Sat by Pulse Oximetry 2020-11-19 15:50:31 99 /min Body Mass Index 2020-11-19 15:50:31 20.0 Height 2020-11-19 15:50:31 190.5\S\75 Pulse Rate 2020-11-19 15:50:31 78 /min Respiratory Rate 2020-11-19 15:50:31 19 /min Temperature 2020-11-19 15:50:31 36.7\S\98.1 Weight 2020-11-19 15:50:31 84305.779\S\2560 Respiratory 2020-11-19 15:49:59 No respirato ry distress /min 02 Sat by Pulse Oximetry 2020-11-19 15:49:59 99 /min Body Mass Index 2020-11-19 15:49:59 20.0 Height 2020-11-19 15:49:59 190.5\S\75 Pulse Rate 2020-11-19 15:49:59 78 /min Respiratory Rate 2020-11-19 15:49:59 19 /min Temperature 2020-11-19 15:49:59 36.7\S\98.1 Weight 2020-11-19 15:49:59 01896.779\S\2560 Respiratory 2020-11-19 15:17:34 No respirato ry distress /min 02 Sat by Pulse Oximetry 2020-11-19 15:17:34 99 /min Body Mass Index 2020-11-19 15:17:34 20.0 Height 2020-11-19 15:17:34 190.5\S\75 Pulse Rate 2020-11-19 15:17:34 78 /min Respiratory Rate 2020-11-19 15:17:34 19 /min Temperature 2020-11-19 15:17:34 36.7\S\98.1 Weight 2020-11-19 15:17:34 29161.779\S\2560 02 Sat by Pulse Oximetry 2020-11-19 14:20:07 99 /min Body Mass Index 2020-11-19 14:20:07 20.0 Height 2020-11-19 14:20:07 190.5\S\75 Pulse Rate 2020-11-19 14:20:07 78 /min Respiratory Rate 2020-11-19 14:20:07 19 /min Temperature 2020-11-19 14:20:07 36.7\S\98.1 Weight 2020-11-19 14:20:07 39904.779\S\2560 02 Sat by Pulse Oximetry 2020-11-19 14:01:33 99 /min Body Mass Index 2020-11-19 14:01:33 20.0 Height 2020-11-19 14:01:33 190.5\S\75 Pulse Rate 2020-11-19 14:01:33 78 /min Respiratory Rate 2020-11-19 14:01:33 19 /min Temperature 2020-11-19 14:01:33 36.7\S\98.1 Weight 2020-11-19 14:01:33 17029.779\S\2560 WEIGHT 2020-11-19 13:57:00 72.136478 kg HEIGHT 2020-11-19 13:57:00 190.5 cm Plan of Care Planned Activity Planned Date Details Comments Source Instructions [facility] Encounters Start Date/Time End Date/Time Encounter Type Admission Type Attending [facility] Facility Care Department Encounter ID Source 2021-08-05 14:24:22 Outpatient Hennessy, Na STLMLC STLMLC [id number] [facility] 2021-08-05 14:23:33 Outpatient Hennessy, Na STLMLC STLMLC [id number] [facility] 2021-08-05 14:22:06 Outpatient Hennessy, Na STLMLC STLMLC [id number] [facility] 2021-08-05 14:06:26 Outpatient Hennessy, Na STLMLC STLMLC [id number] [facility] 2020-11-19 13:51:00 Inpatient [facility] [id number] [facility] 2021-10-28 00:00:00 2021-10-28 00:00:00 OFFICE VISIT ESTAB PT LEVEL 3 STLMLC STLMLC [id number] [facility] 2021-06-19 00:00:00 2021-06-19 00:00:00 SUB ANNUAL [facility] VISIT STLMLC STLMLC [id number] [facility] 2021-05-19 00:00:00 2021-05-19 00:00:00 (TEL) STLMLC STLMLC [id number] [facility] 2020-11-19 13:51:00 2020-11-19 13:51:00 Emergency [facility] [id number] [facility] 2020-03-11 00:00:00 2020-03-11 00:00:00 Patient Secure Msg Doctor Unassigned, Ruch TRAE EGAN [id number] [facility] 2020-03-10 14:40:00 2020-03-10 14:40:00 Outpatient R [facility] [id number] [facility] 2019-09-11 00:00:00 2019-09-11 00:00:00 Katerin molina, TELESALES MANAGER: [address] [facility], [address], [place] [address] , Ph. VFP [facility] - [email or web address] [employer] [id number] [facility] 2019-08-14 15:06:18 2019-09-06 15:55:07 Office Visit Madie Hines Rm, Adc Surg Spec Procedure [facility] [id number] 2019-08-14 15:30:00 2019-08-14 16:46:14 Outpatient R MADIE HINES [facility] [id number] [facility] 2007-07-28 17:47:00 2007-07-31 13:10:00 Inpatient DIXIE WELLS [facility] [id number] [facility] Results Test Description Test Time Test Comments Results Result Co mments Source COVID-19 Status: AsymptomaticComplete Blood Count Auto [id number] 14:16:00* Test Item Value Reference Range Interpretation [...] code = NRBCP) 0 % Comprehensive Metabolic [id number] 14:16:00* Test Item Value Reference Range Interpretation [...] = ALP) 110 U/L 46-116 N Ethanol [id number] 14:16:00* Test Item Value Reference Range Interpretation Comme nts Ethanol (test code = ETOH) < 3 mg/dL
[2025-02-13] MEDS ORDERED: ONDANSETRON 4 MG/2 ML VIAL ONE (23:27)
[2025-02-13] MEDS ORDERED: ACETAMINOPHEN 500 MG TAB ONE (23:27)
[2025-02-13] MEDS ORDERED: FAMOTIDINE 20 MG/2 ML VIAL IV ONE (23:27)
[2025-02-13] MEDS ORDERED: NA CHLORIDE 0.9% 1,000 ML ONE (23:28)
[2025-02-13 23:38] LABS: Absolute Lymphocytes (CBC) 2.0 K/uL (0.7-4.9); Hematocrit 51.1 % (39.6-49.0); Hemoglobin 17.7 g/dL (13.6-17.9); MCH 30.6 pg (27.0-35.0); MCHC 34.6 g/dL (32.0-36.0); MCV 88.5 fL (80-100); MPV 7.0 fL (7.6-11.3); Nucleated RBC Absolute Count 0.0 (0-0); Nucleated Red Blood Cells % 0.2 % (0-0); RBC Red Blood Cell Count 5.78 M/uL (4.33-5.43); White Blood Count 10.40 thou/uL (4.3-10.9)
[2025-02-13 23:49] LABS: ALT/SGPT 63.0 U/L (16-61); AST/SGOT 26.0 U/L (15-37); Albumin 4.3 g/dL (3.4-5.0); Albumin/Globulin Ratio 1.3 (1.1-1.8); Alkaline Phosphatase 119.0 U/L (45-117); Anion Gap 14.9 mEq/L (5.0-15.0); BUN Blood Urea Nitrogen 17.0 mg/dL (7-18); Globulin 3.2 g/dL (2.3-3.5); Glucose Level 90.0 mg/dL (74-106); Lipase 25.0 U/L (13-75); Potassium 3.9 mEq/L (3.5-5.1)
--- NOTE | 2025-02-14 01:33 | ER ---
Nurse's Notes [facility] Name: Gerardo Barragan Age: 39 yrs Sex: Male : 1985 Arrival Date: 02/13/2025 Time: 23:01 Bed 8 Private MD: Diagnosis: Alcohol use, unspecified;Dehydration Presentation: 02/13 23:24 Chief complaint: Patient states: PT STATES HE DRANK 1/2 GALLON OF RUM LAST NIGHT. C/O br2 PASSING OUT AND VOMITING. PT IS CONCERNED THAT HE IS DEHYDRATED AND STATES HE HAS BEEN HAVING LOOSE STOOLS FOR THE LAST 6 MONTHS. C/O BODYACHES ALL OVER. Coronavirus screen: Client denies travel out of the [place] in the last 14 days. Ebola Screen: Patient denies exposure to infectious person. Initial Sepsis Screen: Does the patient meet any 2 criteria? No. Patient's initial sepsis screen is negative. Does the patient have a suspected source of infection? No. Patient's initial sepsis screen is negative. Risk Assessment: Do you want to hurt yourself or someone else? Patient reports no desire to harm self or others. Onset of symptoms is unknown. 23:24 Method Of Arrival: Ambulatory br2 23:24 Acuity: SANTANA 3 br2 23:35 Chief complaint:. Chief complaint:. br2 Triage Assessment: 23:27 General: Appears in no apparent distress. comfortable, Behavior is calm, cooperative. br2 Pain: Complains of pain in chest, abdomen, pelvis, right arm, left arm, right leg and left leg Pain currently is 9 out of 10 on a pain scale. Historical: - Allergies: 23:27 Haldol; br2 23:27 Benadryl; br2 - PMHx: 23:27 Anxiety; Bipolar disorder; insomnia; tremors; br2 - PSHx: 23:27 dental surgery; hand surgery; Tonsillectomy; br2 - Immunization history:: Adult Immunizations not immunized. - Infectious Disease History:: Denies. - Social history:: Smoking status: Patient reports the use of cigarette tobacco products, smokes one-half pack cigarettes per day, Patient uses alcohol, occasionally. - Family history:: not pertinent. - Hospitalizations: : No recent hospitalization is reported. Screenin/07 00:30 [facility] ED Fall Risk Assessment (Adult) History of falling in the last 3 months, bm8 including since admission No falls in past 3 months (0 pts) Confusion or Disorientation No (0 pts) Intoxicated or Sedated No (0 pts) Impaired Gait No (0 pts) Mobility Assist Device Used No (0 pt) Altered Elimination No (0 pt) Score/Fall Risk Level 0 - 2 = Low Risk Oriented to surroundings, Maintained a safe environment, Educated pt \T\ family on fall prevention, incl call for assistance when getting out of bed, Assessed \T\ reinforced patient's understanding of fall precautions, Hourly rounding (assess needs \T\ fall precautionary measures) done, Used ambulatory aids as needed (educated on \T\ assisted with), Used gait belt as appropriate. Abuse screen: Denies threats or abuse. Nutritional screening: No deficits noted. Tuberculosis screening: No symptoms or risk factors identified. Assessment: 00:30 Reassessment: Patient appears in no apparent distress at this time. Patient and/or bm8 family updated on plan of care and expected duration. Pain level reassessed. Patient is alert, oriented x 3, equal unlabored respirations, skin warm/dry/pink. Patient denies pain at this time. Patient states feeling better. Patient states symptoms have improved. 01:36 Reassessment: Patient appears in no apparent distress at this time. No changes from lg3 previously documented assessment. Patient and/or family updated on plan of care and expected duration. Pain level reassessed. Patient is alert, oriented x 3, equal unlabored respirations, skin warm/dry/pink. Patient states feeling better. Patient states symptoms have improved. Vital Signs: 02/13 23:24 BP 146 / 110; Pulse 94; Resp 18; Temp 97.1(TE); Pulse Ox 100% on R/A; Weight 86.18 kg; br2 Height 6 ft. 2 in. ; Pain 9/10; 02/14 00:17 BP 147 / 99; Pulse 65; Resp 17 S; Pulse Ox 100% on R/A; lg3 01:36 BP 141 / 88; Pulse 86; Resp 16 S; Pulse Ox 100% on R/A; lg3 02/13 23:24 Body Mass Index 24.39 (86.18 kg, 187.96 cm) br2 02/13 23:24 Pain Scale: Adult br2 [place] Coma Score: 00:30 Eye Response: spontaneous(4). Motor Response: obeys commands(6). Verbal Response: bm8 oriented(5). Total: 15. ED Course: 02/13 23:06 Patient arrived in ED. gm2 23:06 Jonathan Sr MD is Attending Physician. rn 23:27 Triage completed. br2 23:27 Arm band placed on right wrist. br2 23:35 Panfilo Last, RN is Primary Nurse. bm8 02/14 00:30 Patient has correct armband on for positive identification. Bed in low position. Call bm8 light in reach. Side rails up X 1. Client placed on continuous cardiac and pulse oximetry monitoring. NIBP monitoring applied. pvc monitor on. Pulse ox on. NIBP on. Door closed. Warm blanket given. Pillow given. Verbal reassurance given. Head of bed elevated. 00:30 No provider procedures requiring assistance completed. Inserted saline lock: 18 gauge bm8 in right antecubital area, using aseptic technique. Blood collected. Flushed with 10 mL NS. Patient maintains SpO2 saturation greater than 95% on room air. 01:37 IV discontinued, intact, bleeding controlled, No redness/swelling at site. Pressure lg3 dressing applied. Administered Medications: 02/13 23:35 Drug: Famotidine IVP 20 mg IVP once; dilute with 10 mL 0.9% NaCl; give over 2 minutes bm8 Route: IVP; Site: right antecubital; 02/14 00:32 Follow up: Response: No adverse reaction bm8 02/13 23:35 Drug: NS 0.9% IV 1000 ml IV at 1 bolus Per protocol; to be given as a bolus over 60 bm8 minutes Route: IV; Rate: 1 bolus; Site: right antecubital; 02/14 00:32 Follow up: Response: No adverse reaction; IV Status: Completed infusion bm8 02/13 23:35 Drug: Acetaminophen PO 500 mg PO once Route: PO; bm8 02/14 00:32 Follow up: Response: No adverse reaction bm8 02/13 23:36 Drug: Ondansetron IVP 4 mg IVP once; over 2 minutes Route: IVP; Site: right antecubital;bm8 02/14 00:32 Follow up: Response: No adverse reaction bm8 Medication: 00:30 VIS not applicable for this client. bm8 Outcome: 01:32 Discharge ordered by . kunal 01:36 Discharged to home ambulatory, lg3 01:36 Condition: stable 01:36 Discharge instructions given to patient, Instructed on discharge instructions, follow up and referral plans. Demonstrated understanding of instructions, follow-up care, 01:37 Patient left the ED. lg3 Signatures: Jonathan Sr MD MD rn Able, Lacie, RN RN lg3 Kellee Tao gm2 Panfilo Last RN RN bm8 Marychuy Jung RN RN br2 Corrections: (The following items were deleted from the chart) 08 23:37 23:24 Chief complaint: Patient states: PT STATES HE DRANK 1/2 GALLON OF RUM LAST NIGHT. br2 C/O PASSING OUT AND VOMITING. PT IS CONCERNED THAT HE IS DEHYDRATED AND STATES HE HAS BEEN HAVING LOOSE STOOLS FOR THE LAST 6 MONTHS br2
--- NOTE | 2025-02-14 01:33 | EDPHYS ---
Physician Documentation [facility] Name: Gerardo Barragan Age: 39 yrs Sex: Male : 1985 Arrival Date: 02/13/2025 Time: 23:01 Bed 8 Private MD: ED Physician Jonathan Sr HPI: 02/13 23:54 This 39 yrs old Male presents to ER via Ambulatory with complaints of PT stated he rn drank to much yesterday and not feeling right.. 23:54 Patient reports drink half a gallon of rum last night and has not felt well today. rn Reports vomiting x 1 and feels generalized weakness with malaise.. Historical: - Allergies: 23:27 Haldol; br2 23:27 Benadryl; br2 - PMHx: 23:27 Anxiety; Bipolar disorder; insomnia; tremors; br2 - PSHx: 23:27 dental surgery; hand surgery; Tonsillectomy; br2 - Immunization history:: Adult Immunizations not immunized. - Infectious Disease History:: Denies. - Social history:: Smoking status: Patient reports the use of cigarette tobacco products, smokes one-half pack cigarettes per day, Patient uses alcohol, occasionally. - Family history:: not pertinent. - Hospitalizations: : No recent hospitalization is reported. ROS: 23:54 Constitutional: Negative for fever, chills, and weight loss, Cardiovascular: Negative rn for chest pain, palpitations, and edema, Respiratory: Negative for shortness of breath, cough, wheezing, and pleuritic chest pain, Abdomen/GI: Positive for nausea and vomiting x 1, positive for diarrhea, nonbloody MS/Extremity: Negative for injury and deformity, Skin: Negative for injury, rash, and discoloration, Neuro: Positive for generalized weakness and malaise Exam: 23:54 Constitutional: This is a well developed, well nourished patient who is awake, alert, rn and in no acute distress. Cardiovascular: Regular rate and rhythm. No pulse deficits. Respiratory: No increased work of breathing, no retractions or nasal flaring. Abdomen/GI: Soft, non-tender MS/ Extremity: Pulses equal, no cyanosis. Neuro: Awake and alert, GCS 15 Vital Signs: 23:24 BP 146 / 110; Pulse 94; Resp 18; Temp 97.1(TE); Pulse Ox 100% on R/A; Weight 86.18 kg; br2 Height 6 ft. 2 in. ; Pain 9/10; 02/14 00:17 BP 147 / 99; Pulse 65; Resp 17 S; Pulse Ox 100% on R/A; lg3 01:36 BP 141 / 88; Pulse 86; Resp 16 S; Pulse Ox 100% on R/A; lg3 02/13 23:24 Body Mass Index 24.39 (86.18 kg, 187.96 cm) br2 02/13 23:24 Pain Scale: Adult br2 Humble Coma Score: 00:30 Eye Response: spontaneous(4). Motor Response: obeys commands(6). Verbal Response: bm8 oriented(5). Total: 15. MDM: 02/13 23:06 Medical Screening Exam initiated rn 02/14 01:30 Differential Diagnosis. rn 01:30 Differential Diagnosis Dehydration, adverse effect of heavy alcohol consumption, rn electrolyte disorder, anxiety. Data reviewed: vital signs, nurses notes, lab test result(s), and as a result, I will discharge patient. Care significantly affected by the following chronic conditions: Anxiety. Counseling: I had a detailed discussion with the patient and/or guardian regarding the historical points, exam findings, and any diagnostic results supporting the discharge/admit diagnosis, lab results, the need for outpatient follow up, to return to the emergency department if symptoms worsen or persist or if there are any questions or concerns that arise at home. Response to treatment: the patient's symptoms have markedly improved after treatment, Resting comfortably and feels much better, and as a result, I will discharge patient. Special discussion: I discussed with the patient/guardian in detail that at this point there is no indication for admission to the hospital. It is understood, however, that if the symptoms persist or worsen the patient needs to return immediately for re-evaluation. ED course: I have personally reviewed all of the results, including but not limited to blood tests deemed necessary to safely discharge this patient at this time. All results given to and printed out for patient. I personally went over all the results with the patient and answered all questions. Patient will follow-up with PCP and or specialist as discussed. Return precautions given and understood.. 02/13 23:18 Order name: CBC with Diff; Complete Time: 23:52 rn 02/13 23:18 Order name: CMP; Complete Time: 23:50 rn 02/13 23:18 Order name: Lipase; Complete Time: 23:50 rn 02/13 23:18 Order name: IV Saline Lock; Complete Time: 23:26 rn 02/13 23:18 Order name: Labs collected and sent; Complete Time: 23:26 rn Administered Medications: 02/13 23:35 Drug: Famotidine IVP 20 mg IVP once; dilute with 10 mL 0.9% NaCl; give over 2 minutes bm8 Route: IVP; Site: right antecubital; 02/14 00:32 Follow up: Response: No adverse reaction 8 02/13 23:35 Drug: NS 0.9% IV 1000 ml IV at 1 bolus Per protocol; to be given as a bolus over 60 bm8 minutes Route: IV; Rate: 1 bolus; Site: right antecubital; 02/14 00:32 Follow up: Response: No adverse reaction; IV Status: Completed infusion 8 02/13 23:35 Drug: Acetaminophen PO 500 mg PO once Route: PO; 8 02/14 00:32 Follow up: Response: No adverse reaction 8 02/13 23:36 Drug: Ondansetron IVP 4 mg IVP once; over 2 minutes Route: IVP; Site: right antecubital;8 02/14 00:32 Follow up: Response: No adverse reaction bm8 Disposition Summary: 02/14/25 01:32 Discharge Ordered Notes: Location: Home rn Problem: new rn Symptoms: have improved rn Condition: Stable rn Diagnosis - Alcohol use, unspecified rn - Dehydration rn Followup: rn - With: Private Physician - When: As needed - Reason: Recheck today's complaints, Re-evaluation by your physician Discharge Instructions: - Discharge Summary Sheet rn - Dehydration, Adult rn Forms: - Medication Reconciliation Form rn - Antibiotic rn disease management - Prescription Opioid Use rn - Patient Portal Instructions rn - Leadership Thank You Letter rn Signatures: Dispatcher [employer] Jonathan Mckay MD MD rn McDonald, Brad RN RN bm8 Marychuy Jung, RN RN br2 Gerardo Jung, MANAGER POLICY MANAGER POLICY cr8 Corrections: (The following items were deleted from the chart) 02/13 23:19 23:19 CBC+H.LAB.BRZ ordered. EDFL EDMS 23:19 23:19 COMPREHENSIVE METABOLIC PANEL+C.LAB.BRZ ordered. EDMS EDMS : 23:19 LIPASE+C.LAB.BRZ ordered. EDMS EDMS
[2025-02-14 01:45] VITALS: TEMP 97.1; O2SAT 100
[2025-02-14 01:49] VITALS: BP 141/88
== END 2025-02-14 01:37 | disposition home or self-care (01) ==
LOC: ER 23:01
DX: F10.90 Alcohol use, unspecified, uncomplicated (principal); E86.0 Dehydration; F31.9 Bipolar disorder, unspecified; F17.210 Nicotine dependence, cigarettes, uncomplicated
CPT/HCPCS: 96361; 85025; 36415; 83690; 80053; 96375; 96374; 99285; J2405; J7030

== ENCOUNTER 2025-03-03 11:59 | Emergency (ER) | payer OTHER ==
--- OUTSIDE RECORDS SUMMARY | 2025-03-03 12:12 | XMS REPORT | Continuity of Care Document ---
Author Name Unknown Address [address] [place] [address] [facility] Address [address] [place] [address] Care Team Providers Care Shop Welder Name Role Phone Pcp, Patient Does Not Have A Primary Care Physic karime Claudia Hennessy Attending Clinician Unavailable Doctor Unassigned, Naalehu Attending Clinician U navailable Yudi_A_AH Attending Clinician Unavailable Madie Hines MD Attending Clinician , Adc Surg Spec Procedure Attending Clinician Unavailable MADIE HINES Attending Clinician Unavailable DIXIE BROWNLEE Attending Clinician Unavailable DIXIE BROWNLEE Attending Clinician Unavailable Stephany-Evangelina_A_AH Admitting Clinician Unavailable CLEVELAND LAKHANI Admitting Clinician Unavailab le Payers Payer Name Policy Type Policy Number Effective Date Expirati on Date Source [employer] C1 [id number] Commo n [facility] [employer] [place] [employer] [place] [place]MEDICARE REPLACEMENT/ADV ANTAGE - HMO) [id number] 2019 00:00:00 Problems Condition Name Condition Details Condition Category Status Onset Date Resolution Date Last Treatment Date Treating Clinician Comments Source [id number] Adult general medical exam Problem Common [facility] [id number] Dermatitis Problem Com [facility] [id number] Current smoker Problem [facility] [id number] Schizophre adalgisa, unspecifie d type Problem [facility] [id number] Primary insomnia Problem [facility] Allergies, Adverse Reactions, Alerts Allergy Name Allergy Type Status Severity Reaction(s) Onset Date Inactive Date Treating Clinician Comments Source No Known Drug Allergie s DA Active U 11-19 00:00: 00 [facility] NO KNOWN ALLERGIE S Drug Class Active [facility] Social History Social Habit Start Date Stop Date Quantity Comments Source History of Tobacco Use Current Smoker [facility] Sexual orientation U [facility] Exposure to SARS-CoV-2 (event) 2020-02-09 00:00:00 2020-03-10 14:49:00 Not sure [facility] History of Social function 2020-02-14 00:00:00 2020-02-14 00:00:00 [facility] Sex Assigned At 1985 00:00:00 1985 00:00:00 [facility] Smoking Status Start Date Stop Date Source Light Tobacco Smoker [facility] Tobacco smoking consumption unknown [facility] Current Smoker 2021-11-03 00:00:00 [facility] Medications Ordered Medication Name Filled Medication Name [...] 00:00: 00 Yes [address] [facility] benztropine 1 mg tablet Take 1 tablet twice a day by oral route with meals. benztropine 1 mg tablet Take 1 tablet twice a day by oral route with meals. No 1 BID benztropin e 1 mg tablet Take 1 tablet twice a day by oral route with meals. [facility] hydroxyzine HCl 1 tab a day three times a day hydroxyzine HCl 1 tab a day three times a day No hydroxyzin e HCl 1 tab a day three times a day [facility] risperidone 2 mg [address] ing tablet Place 1 tablet twice a day by translingua l route with meals. risperidone 2 [address] tablet [address] 1 tablet twice a day by translingua l route with meals. No 1 BID risperidon e [address] tablet [address] 1 tablet twice a day by translingu al route with meals. [facility] Benztropine Mesylate 2 MG [...] height 2021-06-19 15:00:00 75 [in_i] [facility] n [facility] weight 2021-06-19 15:00:00 191.2 [lb_av] Co mmon [facility] temperature 2021-06-19 15:00:00 97.6 [degF] Com mon [facility] bmi 2021-06-19 15:00:00 23.9 kg/m2 [facility] oximetry 2021-06-19 15:00:00 95 % [facility] respiratory rate 2021-06-19 15:00:00 16 /min Common [facility] blood pressure systolic 2021-06-19 15:00:00 133 mm[Hg] [facility] blood pressure diastolic 2021-06-19 15:00:00 88 mm[Hg] [facility] BP Diastolic 2019-09-11 00:00:00 80 mm[Hg] [facility] Height 2019-09-11 00:00:00 74 [in_i] [facility] BMI (Body Mass Index) 2019-09-11 00:00:00 22.5 kg/m2 [facility] BP Systolic 2019-09-11 00:00:00 115 mm[Hg] [facility] Body Weight 2019-09-11 00:00:00 175 [lb_av] [facility] 02 Sat by Pulse Oximetry 2020-11-19 17:22:44 99 /min Body Mass Index 2020-11-19 17:22:44 20.0 Height 2020-11-19 17:22:44 190.5\S\75 Pulse Rate 2020-11-19 17:22:44 78 /min Respiratory Rate 2020-11-19 17:22:44 19 /min Temperature 2020-11-19 17:22:44 36.7\S\98.1 Weight 2020-11-19 17:22:44 92484.779\S\2560 Respiratory 2020-11-19 17:22:43 No respirato ry distress /min Respiratory 2020-11-19 17:11:21 No respirato ry distress /min 02 Sat by Pulse Oximetry 2020-11-19 17:11:21 99 /min Body Mass Index 2020-11-19 17:11:21 20.0 Height 2020-11-19 17:11:21 190.5\S\75 Pulse Rate 2020-11-19 17:11:21 78 /min Respiratory Rate 2020-11-19 17:11:21 19 /min Temperature 2020-11-19 17:11:21 36.7\S\98.1 Weight 2020-11-19 17:11:21 60834.779\S\2560 Respiratory 2020-11-19 16:06:27 No respirato ry distress /min 02 Sat by Pulse Oximetry 2020-11-19 16:06:27 99 /min Body Mass Index 2020-11-19 16:06:27 20.0 Height 2020-11-19 16:06:27 190.5\S\75 Pulse Rate 2020-11-19 16:06:27 78 /min Respiratory Rate 2020-11-19 16:06:27 19 /min Temperature 2020-11-19 16:06:27 36.7\S\98.1 Weight 2020-11-19 16:06:27 19834.779\S\2560 Respiratory 2020-11-19 15:51:02 No respirato ry distress /min 02 Sat by Pulse Oximetry 2020-11-19 15:51:02 99 /min Body Mass Index 2020-11-19 15:51:02 20.0 Height 2020-11-19 15:51:02 190.5\S\75 Pulse Rate 2020-11-19 15:51:02 78 /min Respiratory Rate 2020-11-19 15:51:02 19 /min Temperature 2020-11-19 15:51:02 36.7\S\98.1 Weight 2020-11-19 15:51:02 73807.779\S\2560 Respiratory 2020-11-19 15:50:32 No respirato ry distress /min 02 Sat by Pulse Oximetry 2020-11-19 15:50:32 99 /min Body Mass Index 2020-11-19 15:50:32 20.0 Height 2020-11-19 15:50:32 190.5\S\75 Pulse Rate 2020-11-19 15:50:32 78 /min Respiratory Rate 2020-11-19 15:50:32 19 /min Temperature 2020-11-19 15:50:32 36.7\S\98.1 Weight 2020-11-19 15:50:32 09712.779\S\2560 Respiratory 2020-11-19 15:50:31 No respirato ry distress /min 02 Sat by Pulse Oximetry 2020-11-19 15:50:31 99 /min Body Mass Index 2020-11-19 15:50:31 20.0 Height 2020-11-19 15:50:31 190.5\S\75 Pulse Rate 2020-11-19 15:50:31 78 /min Respiratory Rate 2020-11-19 15:50:31 19 /min Temperature 2020-11-19 15:50:31 36.7\S\98.1 Weight 2020-11-19 15:50:31 72053.779\S\2560 Respiratory 2020-11-19 15:49:59 No respirato ry distress /min 02 Sat by Pulse Oximetry 2020-11-19 15:49:59 99 /min Body Mass Index 2020-11-19 15:49:59 20.0 Height 2020-11-19 15:49:59 190.5\S\75 Pulse Rate 2020-11-19 15:49:59 78 /min Respiratory Rate 2020-11-19 15:49:59 19 /min Temperature 2020-11-19 15:49:59 36.7\S\98.1 Weight 2020-11-19 15:49:59 45343.779\S\2560 Respiratory 2020-11-19 15:17:34 No respirato ry distress /min 02 Sat by Pulse Oximetry 2020-11-19 15:17:34 99 /min Body Mass Index 2020-11-19 15:17:34 20.0 Height 2020-11-19 15:17:34 190.5\S\75 Pulse Rate 2020-11-19 15:17:34 78 /min Respiratory Rate 2020-11-19 15:17:34 19 /min Temperature 2020-11-19 15:17:34 36.7\S\98.1 Weight 2020-11-19 15:17:34 06716.779\S\2560 02 Sat by Pulse Oximetry 2020-11-19 14:20:07 99 /min Body Mass Index 2020-11-19 14:20:07 20.0 Height 2020-11-19 14:20:07 190.5\S\75 Pulse Rate 2020-11-19 14:20:07 78 /min Respiratory Rate 2020-11-19 14:20:07 19 /min Temperature 2020-11-19 14:20:07 36.7\S\98.1 Weight 2020-11-19 14:20:07 81778.779\S\2560 02 Sat by Pulse Oximetry 2020-11-19 14:01:33 99 /min Body Mass Index 2020-11-19 14:01:33 20.0 Height 2020-11-19 14:01:33 190.5\S\75 Pulse Rate 2020-11-19 14:01:33 78 /min Respiratory Rate 2020-11-19 14:01:33 19 /min Temperature 2020-11-19 14:01:33 36.7\S\98.1 Weight 2020-11-19 14:01:33 34693.779\S\2560 WEIGHT 2020-11-19 13:57:00 72.743644 kg HEIGHT 2020-11-19 13:57:00 190.5 cm Plan of Care Planned Activity Planned Date Details Comments Source Instructions [facility] Encounters Start Date/Time End Date/Time Encounter Type Admission Type Attending [facility] Facility Care Department Encounter ID Source 2021-08-05 14:24:22 Outpatient Hennessy, Na STLMLC ST[facility] [id number] [facility] 2021-08-05 14:23:33 Outpatient Hennessy, Na STLMLC ST[facility] [id number] [facility] 2021-08-05 14:22:06 Outpatient Hennessy, Na STLMLC ST[facility] [id number] [facility] 2021-08-05 14:06:26 Outpatient Hennessy, Na STLMLC STLMLC [id number] [facility] 2020-11-19 13:51:00 Inpatient [facility] [id number] [facility] 2021-10-28 00:00:00 2021-10-28 00:00:00 OFFICE VISIT ESTAB PT LEVEL 3 STLMLC STLMLC [id number] [facility] 2021-06-19 00:00:00 2021-06-19 00:00:00 SUB ANNUAL [facility] VISIT STLMLC STLMLC [id number] [facility] 2021-05-19 00:00:00 2021-05-19 00:00:00 (TEL) STLMLC STLMLC [id number] [facility] 2020-11-19 13:51:00 2020-11-19 13:51:00 Emergency [facility] [id number] [facility] 2020-03-11 00:00:00 2020-03-11 00:00:00 Patient Secure Msg Doctor Unassigned, Naalehu TRAE EGAN [id number] [facility] 2020-03-10 14:40:00 2020-03-10 14:40:00 Outpatient R [facility] [id number] [facility] 2019-09-11 00:00:00 2019-09-11 00:00:00 Katerin molina, PIPELINE OPERATOR: [address] [facility], [address], [place] [address] , Ph. VFP [facility] - [email or web address] [employer] [phone] [facility] 2019-08-14 15:06:18 2019-09-06 15:55:07 Office Visit Madie Hines Rm, Adc Surg Spec Procedure [facility] Profess[facility] [id number] 2019-08-14 15:30:00 2019-08-14 16:46:14 Outpatient R MADIE HINES [facility] [id number] [facility] 2007-07-28 17:47:00 2007-07-31 13:10:00 Inpatient DIXIE WELLS [facility] PSY [id number] [facility] Results Test Description Test Time Test Comments Results Result Co mments Source COVID-19 Status: AsymptomaticComplete Blood Count Auto [id number] 14:16:00* Test Item Value Reference Range Interpretation [...] code = NRBCP) 0 % Comprehensive Metabolic [id number] 14:16:00* Test Item Value Reference Range Interpretation [...] = ALP) 110 U/L 46-116 N Ethanol [id number] 14:16:00* Test Item Value Reference Range Interpretation Comme nts Ethanol (test code = ETOH) < 3 mg/dL
[2025-03-03 12:49] LABS: Absolute Lymphocytes (CBC) 1.8 K/uL (0.7-4.9); Hematocrit 48.3 % (39.6-49.0); Hemoglobin 16.7 g/dL (13.6-17.9); MCH 30.7 pg (27.0-35.0); MCHC 34.5 g/dL (32.0-36.0); MCV 88.9 fL (80-100); MPV 7.7 fL (7.6-11.3); Nucleated RBC Absolute Count 0.0 (0-0); Nucleated Red Blood Cells % 0.0 % (0-0); RBC Red Blood Cell Count 5.43 M/uL (4.33-5.43); White Blood Count 9.50 thou/uL (4.3-10.9)
[2025-03-03 13:02] LABS: PT Prothrombin Time 12.9 SECONDS (10-13.0); PTT, Activated Partial Thromb 29.3 SECONDS (27.2-37.4); Protime INR 1.15
[2025-03-03] MEDS ORDERED: NA CHLORIDE 0.9% 1,000 ML ONE (13:04)
[2025-03-03 13:28] LABS: ALT/SGPT 21 U/L (16-61); AST/SGOT 16 U/L (15-37); Albumin 4.1 g/dL (3.4-5.0); Albumin/Globulin Ratio 1.4 (1.1-1.8); Alkaline Phosphatase 88 U/L (45-117); Anion Gap 14.3 mEq/L (5.0-15.0); BUN Blood Urea Nitrogen 10 mg/dL (7-18); Bilirubin Indirect, Calculated 0.8 mg/dL (0.2-0.8); Globulin 2.9 g/dL (2.3-3.5); Glucose Level 108 mg/dL (74-106); Potassium 3.3 mEq/L (3.5-5.1)
--- NOTE | 2025-03-03 14:19 | EDPHYS ---
Physician Documentation [facility] Name: Gerardo Barragan Age: 39 yrs Sex: Male : 1985 Arrival Date: 03/03/2025 Time: 11:59 Bed 15 Private MD: ED Physician Jonathan Sr HPI: 03/03 12:20 This 39 yrs old Male presents to ER via EMS with complaints of Psych Problem. dr5 12:20 The patient presents to the emergency department with paranoia, psychosis, has dr5 experienced auditory hallucinations, Patient speaking to himself, has delusions. Onset: The symptoms/episode began/occurred acutely. Past psychiatric history: it is unknown whether or not the patient has a previous inpatient psychiatric history. Patient called EMS. He reports that he was supposed to go to [facility] which is off of [place] because were incompetent. EMS reports that he complains of bilateral foot pain and does not want to talk about his mental illness.. EMS called for bilateral foot pain and he reports that he was supposed rerouted to [facility].. Historical: - Allergies: 12:22 Benadryl; jb4 12:22 Haldol; jb4 12:22 "Psych meds"; jb4 - PMHx: 12:22 Anxiety; Bipolar disorder; insomnia; tremors; Schizophrenia; jb4 - PSHx: 12:22 dental surgery; hand surgery; Tonsillectomy; jb4 ROS: 12:20 Constitutional: as per hpi dr5 Exam: 12:20 Constitutional: This is a well developed, well nourished patient who is awake, alert, dr5 and in no acute distress. Head/Face: Normocephalic, atraumatic. Eyes: Pupils equal round and reactive to light, extra-ocular motions intact. Lids and lashes normal. Conjunctiva and sclera are non-icteric and not injected. Cornea within normal limits. Periorbital areas with no swelling, redness, or edema. Neck: Trachea midline, no thyromegaly or masses palpated, and no cervical lymphadenopathy. Supple, full range of motion without nuchal rigidity, or vertebral point tenderness. No Meningismus. Chest/axilla: Normal chest wall appearance and motion. Nontender with no deformity. No lesions are appreciated. Cardiovascular: Regular rate and rhythm with a normal S1 and S2. Normal PMI, no JVD. No pulse deficits. Respiratory: Lungs have equal breath sounds bilaterally, clear to auscultation. No rales, rhonchi or wheezes noted. No increased work of breathing, no retractions or nasal flaring. Abdomen/GI: Soft, non-tender, non-distended Back: No spinal tenderness. No costovertebral tenderness. Full range of motion. Skin: Warm, dry with normal turgor. Normal color with no rashes, no lesions, and no evidence of cellulitis. MS/ Extremity: Pulses equal, no cyanosis. Neurovascular intact. Full, normal range of motion. Neuro: Awake and alert Psych: Awake, alert. Patient answers questions. Patient reports that he called multiple people by pressing the button and all authorities were dispatched. 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 Patient often has the linear thinking. When not asking any questions, patient is whispering to himself. Vital Signs: 12:19 BP 149 / 94; Pulse 91; Resp 16; Temp 98.2(O); Pulse Ox 100% on R/A; Weight 79.38 kg jb4 (R); Height 6 ft. 2 in. (R); Pain 10/10; 13:21 BP 131 / 95; Pulse 76; Resp 16; Pulse Ox 100% on R/A; jb4 12:19 Body Mass Index 22.47 (79.38 kg, 187.96 cm) jb4 12:19 Pain Scale: Adult jb4 MDM: 12:16 Medical Screening Exam initiated dr5 12:23 Differential diagnosis: drug withdrawal. acute psychotic break, depression, psychosis dr5 secondary to non-compliance. Data reviewed: vital signs, nurses notes, lab test result(s), CBC, white blood cell count, hemoglobin, hematocrit, platelets, electrolytes, sodium, potassium, chloride, serum bicarbonate, BUN, creatinine, serum glucose, urinalysis, urine drug screen, EKG. ED course: Will have [facility] evaluate patient for possible inpatient admission for psychosis. Pending blood work and urine at this time.. 13:30 ED course: [facility] student services representative evaluating patient at this time.. dr5 15:16 Special discussion: I have referred the patient to see his PCP for further evaluation dr5 of high blood pressure. 15:19 ED course: Patient reports that he does not want to be transferred and will get there dr5 himself. Patient denies suicidal or homicidal ideation. Patient was agitated with every step of our plan. Patient safe for discharge. Strict ER precautions given.. 03/03 12:19 Order name: Acetaminophen; Complete Time: 13:37 dr5 03/03 12:19 Order name: Basic Metabolic Panel; Complete Time: 13:37 03/03 12:19 Order name: CBC with Diff; Complete Time: 12:58 [facility] 03/03 12:19 Order name: ETOH Level; Complete Time: 13:29 dr5 03/03 12:19 Order name: Hepatic Function; Complete Time: 13:37 dr5 03/03 12:19 Order name: PT-INR; Complete Time: 13:03/03 12:19 Order name: Ptt, Activated; Complete Time: 13: [facility] 03/03 12:19 Order name: Salicylate; Complete Time: 13:19 [facility] 03/03 12:19 Order name: EKG - Nurse/Tech; Complete Time: 13:11 [facility] 03/03 12:19 Order name: IV Saline Lock; Complete Time: 12:53 [facility] 03/03 12:19 Order name: Labs collected and sent; Complete Time: 12:53 [facility] 03/03 12:19 Order name: Suicide Screening ([place]); Complete Time: 12:26 dr5 EC:00 Rate is 85 beats/min. Rhythm is regular. QRS [place] is Normal. NE interval is normal at dr5 142 msec. QRS interval is normal at 94 msec. QT interval is normal at 394 msec. Clinical impression: Normal ECG and No evidence of ischemia. Administered Medications: 13:10 Drug: NS 0.9% IV 1000 ml IV at 1000 ml once; to be given as a bolus over 60 minutes jb4 Route: IV; Rate: 1000 ml; Site: right antecubital; 14:10 Follow up: Response: No adverse reaction; IV Status: Completed infusion; IV Intake: jb4 1000ml Disposition: 15:03 Co-signature as Attending Physician, Jonathan Sr MD I reviewed the patient's care rn provided by the Advanced Practice Provider and agree with the diagnosis and treatment plan. Disposition Summary: 03/03/25 14:18 Discharge Ordered Notes: Location: Home dr5 Condition: Stable dr5 Diagnosis - Unspecified psychosis not due to a substance or known physiological condition dr5 Followup: dr5 - With: Emergency Department - When: As needed - Reason: Worsening of condition Followup: dr5 - With: Private Physician - When: 1 - 2 days - Reason: Recheck today's complaints, Continuance of care, Re-evaluation by your physician Followup: dr5 - With: Elias Bell MD - When: 1 - 2 days - Reason: Recheck today's complaints, Continuance of care, Re-evaluation by your physician Discharge Instructions: - Discharge Summary Sheet dr5 - Psychosis dr5 Forms: - Medication Reconciliation Form dr5 - Patient Portal Instructions dr5 - Leadership Thank You Letter dr5 Signatures: Dispatcher [employer] EDJonathan Olguin MD MD rn Bryson, James, RN RN jb4 Artur Carson, SINTIA-C MIXER AND BLENDER-Cdr5 Corrections: (The following items were deleted from the chart) 12:26 12:19 Suicide Precautions ordered. dr5 jb4 15:19 15:16 Special discussion: I have referred the patient to see his PCP for further dr5 evaluation of high blood pressure. dr5
--- NOTE | 2025-03-03 14:19 | ER ---
Nurse's Notes [facility] Name: Gerardo Barragan Age: 39 yrs Sex: Male : 1985 Arrival Date: 03/03/2025 Time: 11:59 Bed 15 Private MD: Diagnosis: Unspecified psychosis not due to a substance or known physiological condition Presentation: 03/03 12:19 Chief complaint: EMS states: Pt is Schizophrenic and was walking around with no shoes jb4 on. Main complaint is Dl foot pain that is 10/10. Pt noted to be talking to himself, when asked about mental health he states "shut up, I don't want to talk about it.". He reportedly wants his medications refilled but also reports not taking them due to the side effects they have. Coronavirus screen: At this time, the client does not indicate any symptoms associated with coronavirus-19. Ebola Screen: No symptoms or risks identified at this time. Initial Sepsis Screen: Does the patient meet any 2 criteria? HR > 90 bpm. Yes Does the patient have a suspected source of infection? No. Patient's initial sepsis screen is negative. Risk Assessment: Do you want to hurt yourself or someone else? Patient reports no desire to harm self or others. Onset of symptoms was March 03, 2025. Transition of care: patient was not received from another setting of care. 12:19 Method Of Arrival: EMS: [facility] jb4 12:19 Acuity: SANT[place] 3 jb4 Historical: - Allergies: 12:22 Benadryl; jb4 12:22 Haldol; jb4 12:22 "Psych meds"; jb4 - PMHx: 12:22 Anxiety; Bipolar disorder; insomnia; tremors; Schizophrenia; jb4 - PSHx: 12:22 dental surgery; hand surgery; Tonsillectomy; jb4 Screenin:23 [facility] ED Fall Risk Assessment (Adult) History of falling in the last 3 months, jb4 including since admission No falls in past 3 months (0 pts) Confusion or Disorientation No (0 pts) Intoxicated or Sedated No (0 pts) Impaired Gait No (0 pts) Mobility Assist Device Used No (0 pt) Altered Elimination No (0 pt) Score/Fall Risk Level 0 - 2 = Low Risk Oriented to surroundings, Maintained a safe environment. Abuse screen: Denies threats or abuse. Nutritional screening: No deficits noted. Tuberculosis screening: No symptoms or risk factors identified. Assessment: 12:23 General: Appears in no apparent distress. uncomfortable, Behavior is calm, cooperative, jb4 appropriate for age. Pain: Complains of pain in right foot and left foot Pain does not radiate. Pain currently is 10 out of 10 on a pain scale. Neuro: Level of Consciousness is awake, alert, obeys commands, Oriented to person, place, time, situation. Cardiovascular: Patient's skin is warm and dry. Respiratory: Airway is patent Respiratory effort is even, unlabored, Respiratory pattern is regular, symmetrical. Derm: Skin is intact, Skin is pink, warm \\T\\ dry. Musculoskeletal: Circulation, motion, and sensation intact. Range of motion: intact in all extremities. 13:21 Reassessment: Pt becoming more agitated. Is demanding to be transferred and wanting to jb speak with the ER provider. Provider notified of situation. [facility] at bedside. 13:51 Reassessment: Patient appears in no apparent distress at this time. Patient is alert, jb4 oriented x 3, equal unlabored respirations, skin warm/dry/pink. Pt continues to speak to himself. Is interacting as if someone is in the room with him, no one is at the bedside. 14:13 Reassessment: Patient appears in no apparent distress at this time. Patient and/or jb4 family updated on plan of care and expected duration. Pain level reassessed. Patient is alert, oriented x 3, equal unlabored respirations, skin warm/dry/pink. Pt requesting to be discharged so he can go to his Dr. in [place]. Informed pt we are still working with [facility] to try and transfer him per his request. Asked pt if he would be willing to wait to talk to [facility] again and work with them to help be transferred. Pt states " I don't want to talk to them ever again in my life!" IV removed. Pt got dressed and left ED. Provider notified. Advised pt to call a ride to [place] if he is not willing to wait as it is too far to walk. Psych: 12:26 [place] Suicide Severity Screening: In the past month, have you wished you were jb or wished you could go to sleep and not wake up? Patient responds "No." "In the past month, have you actually had any thoughts of killing yourself?" Patient responds "no." "In your lifetime, have you ever done anything, started to do anything, or prepared to do anything to end your life?" Patient responds "no.". Subjective: Patient's mood is irritable, Delusions are denied, Hallucinations are auditory. Objective: Patient is cooperative, challenging, irritable, suspicious, Speech is normal, Affect is blunted, inappropriate. Vital Signs: 12:19 BP 149 / 94; Pulse 91; Resp 16; Temp 98.2(O); Pulse Ox 100% on R/A; Weight 79.38 kg jb4 (R); Height 6 ft. 2 in. (R); Pain 10/10; 13:21 BP 131 / 95; Pulse 76; Resp 16; Pulse Ox 100% on R/A; jb4 12:19 Body Mass Index 22.47 (79.38 kg, 187.96 cm) jb4 12:19 Pain Scale: Adult jb4 ED Course: 12:15 Patient arrived in ED. dr5 12:15 Artur Carson FNP-C [facility]. dr5 12:15 Jonathan Sr MD is Attending Physician. dr5 12:22 Triage completed. jb4 12:22 Arm band placed on right wrist. jb4 12:23 Patient has correct armband on for positive identification. Bed in low position. Call jb4 light in reach. Side rails up X 1. Provided Education on: plan of care. 13:21 Shahriar Logan, MANJINDER is Primary Nurse. jb4 14:13 No provider procedures requiring assistance completed. IV discontinued, intact, jb4 bleeding controlled, No redness/swelling at site. Pressure dressing applied. 14:18 Elias Bell MD is Referral Physician. dr5 Administered Medications: 13:10 Drug: NS 0.9% IV 1000 ml IV at 1000 ml once; to be given as a bolus over 60 minutes jb4 Route: IV; Rate: 1000 ml; Site: right antecubital; 14:10 Follow up: Response: No adverse reaction; IV Status: Completed infusion; IV Intake: jb4 1000ml Medication: 12:23 VIS not applicable for this client. jb4 Intake: 14:10 IV: 1000ml; Total: 1000ml. jb4 Outcome: 14:18 Discharge ordered by . dr5 14:20 Discharged to Unknown Pt states he is going to [facility] in [place]. jb4 14:20 Condition: stable 14:20 Discharge instructions given to Pt left prior to receiving instructions. 14:20 Patient left the ED. jb4 Signatures: Shahriar Logan RN RN jb4 Artur Carson, CHOCOLATE MAKER-C CHOCOLATE MAKER-Cdr5 Corrections: (The following items were deleted from the chart) 13:22 13:21 Reassessment: Pt becoming more agitated. Is demanding to be transferred and jb4 wanting to speak with the ER provider. Provider notified of situation. jb4 13:34 12:26 Subjective: Patient's mood is irritable, Delusions are denied, Hallucinations are jb4 auditory, jb4 13:34 12:26 Objective: Patient is cooperative, irritable, Speech is normal, Affect is jb4 blunted, jb4
[2025-03-03 14:33] VITALS: TEMP 98.2; O2SAT 100
[2025-03-03 14:34] VITALS: BP 131/95
== END 2025-03-03 14:20 | disposition home or self-care (01) ==
LOC: ER 11:59
DX: F29 Unspecified psychosis not due to a substance or known physiological condition (principal)
CPT/HCPCS: 93005; 85025; 80048; 36415; 85610; 80076; 85730; 96360; 99285; 80143; 80179; 82077; J7030